=== PATIENT | female | born 1985 | race Two or more races ===

== ENCOUNTER 2023-08-13 07:50 | Emergency (ER) | payer BC, SELFPAY ==
--- NOTE | ~2023-08-13 | XR_ITS ---
EXAMINATION: XR CHEST CLINICAL INFORMATION: Left-sided chest pain. COMPARISON: None available. TECHNIQUE: Frontal view of the chest was obtained. FINDINGS: The lungs are clear. The cardiomediastinal silhouette is normal in size. There is no pleural effusion or pneumothorax. No acute osseous abnormality. XR/XR chest 1V IMPRESSION: No acute cardiopulmonary findings.
[2023-08-13 07:54] VITALS: BP 127/92; PULSE 114; RESP 22; TEMP 36.9; O2SAT 100
--- NOTE | 2023-08-13 07:56 | ED_ITS ---
HPI - General Adult General Chief complaint: Extremity Injury, Upper Stated complaint: L arm pain Time Seen by Provider: 08/13/23 07:56 Source: patient Mode of arrival: ambulatory Limitations: no limitations History of Present Illness HPI narrative: 38-year-old female history of lupus, Raynaud's, ADHD presenting with complaints of left upper extremity pain starting in the axilla radiating down the left upper extremity, feels like a serrated knife at times is cutting her and going down her entire left upper extremity. Also reporting some associated chest discomfort but no shortness of breath. No history of PE or DVT. This has been ongoing for the past few days however not improving seems to be getting worse. Patient was seen by PCP yesterday prescribed prednisone and naproxen. Went to [facility] earlier today and they gave her Tylenol. No fevers, chills, nausea, vomiting, abdominal pain, headache, vision changes, dizziness or weakness. Related Data Previous Rx's Medication Instructions Recorded morphine 15 mg immediate release 15 mg PO Q6H PRN pain 5 days #10 08/13/23 tablet tabs Allergies Allergy/AdvReac Type Severity Reaction Status Date / Time acetaminophen [From Percocet] Allergy Unknown Verified 08/13/23 09:38 bee pollen Allergy Unknown Verified 08/13/23 09:38 oxycodone [From Percocet] Allergy Unknown Verified 08/13/23 09:38 tree nut Allergy Unknown Verified 08/13/23 09:38 Review of Systems 2 Review of Systems: Yes all other systems are reviewed and are negative PMFSH Past Medical History Attestation statement: The following information was validated with the patient. Source: old records reviewed and nursing notes reviewed Social History Social History (System 08/13/23 @ 09:38 by Debra Umana) Smoked in Last 30 Days: No Use of substances other than those prescribed or required for medical reasons: Yes Substance Use Type: Marijuana Advance Directives: Yes Advance Directives Information Provided: Yes Advance Directives on File: No Patient : No Physical Exam ED Vital Signs: Vital Signs - 24 hr 08/13/23 07:54 08/13/23 08:14 08/13/23 10:01 Temperature 98.4 F 98.4 F 98.3 F Pulse Rate 114 H 114 H 94 Respiratory Rate 22 H 22 H 14 Blood Pressure 127/92 H 127/92 H 118/79 Pulse Oximetry 100 100 100 Oxygen Delivery Method Room Air Room Air Room Air 08/13/23 11:20 08/13/23 12:05 Temperature 98.0 F 98.1 F Pulse Rate 82 90 Respiratory Rate 18 18 Blood Pressure 113/71 116/75 Pulse Oximetry 100 95 Oxygen Delivery Method Room Air Room Air BMI result Body Mass Index 27.6 Tachycardia likely secondary to anxiety Appearance: Alert.? Oriented X3.? No acute distress.? Patient pacing around room, anxious. Head: Normocephalic, atraumatic, no step-offs or deformities Eyes: Pupils equal, round and reactive to light.? ENT: Pharynx normal.? Neck: Normal inspection.? Neck supple.? CVS: Normal heart rate and rhythm.? Pulses normal.? Respiratory: No respiratory distress.? Breath sounds normal.? Abdomen: Soft and nontender.? Skin: Skin warm and dry.? Normal skin color.? Normal skin turgor.? Extremities: No lower extremity edema.? No calf ttp. 5/5 strength to bilateral upper and lower extremities. 2+ radial and brachial pulses equal bilateral. No wrist drop. Neuro: Oriented X 3.? No motor deficit.? No sensory deficit. CN 2-12 intact Course Reevaluation(s) Reevaluation #1: CBC with slight leukocytosis 11.8 likely secondary to acute pain. Chemistry no acute findings requiring intervention. Troponin negative. D-dimer negative. EKG nonischemic. Patient much more comfortable states she is feeling much better. Chest x-ray pending. Time: 11:27 Reevaluation #2: X-ray pending however gross read appears normal. Will send her home with rheumatology discharge. Educated patient on diagnosis and treatment plan, answered all question, patient verbalizes understanding. At this time patient will be discharged home, advised to return with new or worsening symptoms. Educated on worrisome signs and symptoms and when to return. At this time I feel comfortable discharge home. I did go over safe narcotic discharge with patient. Time: 11:27 Reevaluation #3: X-ray normal sinus rhythm. Time: 12:19 Medications Administered Discontinued Medications Generic Name Dose Route Start Last Admin Trade Name Freq PRN Reason Stop Dose Admin Fentanyl 25 mcg 08/13/23 08:27 08/13/23 08:31 Fentanyl Citrate/Pf 100 Mcg/2 Ml Vial IVPUSH 08/13/23 08:28 25 mcg ONCE ONE Administration Protocol Ketorolac Tromethamine 30 mg 08/13/23 10:51 08/13/23 11:18 Ketorolac Tromethamine 30 Mg/Ml Vial IVPUSH 08/13/23 10:52 30 mg ONCE ONE Administration Lorazepam 0.5 mg 08/13/23 08:03 08/13/23 08:31 Lorazepam 2 Mg/Ml Vial IVPUSH 08/13/23 08:04 0.5 mg STAT STA Administration Morphine Sulfate 4 mg 08/13/23 08:02 08/13/23 08:32 Morphine Sulfate 4 Mg/Ml Cartridge IVPUSH 08/13/23 08:03 Not Given ONCE ONE Protocol Morphine Sulfate 4 mg 08/13/23 10:55 08/13/23 11:18 Morphine Sulfate 4 Mg/Ml Cartridge IVPUSH 08/13/23 10:56 4 mg ONCE ONE Administration Protocol Medical Decision Making Medical Decision Making [facility] Narrative: 38-year-old female presents with complaints of left upper extremity pain, atraumatic as well as chest pain. Physical examination benign however patient does appear anxious and is pacing around room. Concerns for anxiety and musculoskeletal pain versus complex regional pain syndrome. Unlikely ACS, PE, acute respiratory distress. No trauma unlikely fracture dislocation. Unlikely arterial occlusion. Will do a D-dimer to rule out venous occlusion Plan at this time labs, imaging, EKG Differential Diagnosis Differential Diagnoses: The differential diagnosis associated with the presentation includes Concerns for anxiety and musculoskeletal pain versus complex regional pain syndrome. Unlikely ACS, PE, acute respiratory distress. No trauma unlikely fracture dislocation. Unlikely arterial occlusion. Will do a D-dimer to rule out venous occlusion Admission/Observation Consideration of admission/observation: Escalation of care including admission/observation considered Unlikely Lab Data [facility] Lab Attestation statement: I reviewed the patient's lab results. 08/13/23 08:21 08/13/23 08:21 Labs: Lab Results 08/13/23 Range/Units 08:21 WBC 11.8 H (4.8-10.8) X10*3/uL RBC 4.11 L (4.20-5.50) X10*6/uL Hgb 12.0 (12.0-16.0) g/dl Hct 35.3 L (37.0-47.0) % MCV 85.9 (80.0-98.0) fL MCH 29.2 (27.0-33.0) pg MCHC 34.0 (31.0-35.0) g/dl RDW 13.2 (11.0-16.0) % Plt Count 295 (160-400) X10*3/uL MPV 9.8 (9.4-12.3) fL Immature Gran % (Auto) 0.3 (0.0-0.4) % Neut % (Auto) 90.5 H (45-73) % Lymph % (Auto) 5.6 L (20-40) % [place] % (Auto) 3.5 (2-11) % Eos % (Auto) 0.0 (0-4) % Baso % (Auto) 0.1 (0-2) % Lymph # (Auto) 0.7 L (1.2-4.9) X10*3/uL [place] # (Auto) 0.4 (0.1-1.2) X10*3/uL Eos # (Auto) 0.0 (0.0-0.4) X10*3/uL Baso # (Auto) 0.0 (0.0-0.2) X10*3/uL Abs Immat Gran (auto) 0.04 H (0.00-0.03) X10*3/uL Absolute Neuts (auto) 10.6 H (2.0-8.3) x10*3/uL Absolute Nucleated RBC 0.000 (0.0-0.012) X10*3/uL Nucleated RBC % (auto) 0.0 (0.0-0.2) /100WBC Smear Tech's Comments VERIFIED ESR 7 (0-20) MM/HR PT 12.6 (11.1-13.3) SEC INR 1.0 (0.9-1.1) D-Dimer High Sensitivty < 150 NG/ML Sodium 136 (135-145) mmol/L Potassium 3.7 (3.3-5.1) mmol/L Chloride 106 (96-108) mmol/L Carbon Dioxide 23 (22-29) mmol/L Anion Gap 11 L (12-20) BUN 15 (9-16) mg/dL Creatinine 0.66 (0.5-1.4) mg/dL Estim Creat Clear Calc 107.9 Estimated GFR > 60 Random Glucose 139 H (60-115) mg/dL Calcium 9.0 (8.4-10.2) mg/dL Magnesium 1.8 (1.6-2.6) mg/dL Total Bilirubin 0.4 (0.0-1.0) mg/dL AST 15 (5-31) U/L ALT 20 (0-31) U/L Alkaline Phosphatase 69 (39-117) U/L Troponin I High Sens < 2.7 (<3.5-17.0) ng/L C-Reactive Protein 0.15 (< or = 0.50) mg/dL Total Protein 6.8 (6.5-8.0) g/dL Albumin 3.7 (3.5-5.0) g/dL Independent Interpretation I performed an independent interpretation of an: EKG and Plain X-Ray Radiology Impression Discussion of test interpretation with radiology: I have reviewed the radiologist's reading. Independent Historian Clinical information obtained from an independent historian. History obtained from or confirmed by: Parent Critical Care Time Critical Care Time Critical Care Time: No Discharge Plan Discharge Clinical Impression: Arm pain, left Patient Disposition: Home, Self-Care Instructions: Arm Pain (ED) Additional Instructions: Take your medications as prescribed. If you were prescribed antibiotics today, it is important that you take your medication to their entirety, do not skip any doses, do not finish them early. Follow-up with your primary care provider this week. Return to the emergency department with new or worsening symptoms. Such as fevers, chills, chest pain, shortness of breath, nausea, vomiting, dizziness, headache, vision changes, lethargy In case of emergency call 911 Take prednisone as prescribed. You can take Tylenol as needed for ipus-aw-pigozgct pain. For severe pain you can take morphine. A narcotic has been sent to your pharmacy please take this as prescribed. Do not take more than the prescribed dose. Narcotic medications can cause addiction. Please do not mix them with alcohol. Do not take them while driving or operating machinery. Do not take them with any other narcotics. Do not share them with friends or family. They can cause constipation. Take them only for severe pain. XR/XR chest 1V IMPRESSION: No acute cardiopulmonary findings. Prescriptions: New morphine 15 mg tablet 15 mg PO Q6H PRN (Reason: pain) 5 Days Qty: 10 0RF Rx Instructions: Partial Fill upon patient request. [place] [facility] Group] - 1 day Braulio Win MD [Primary Care Provider] - 2 days Stand Alone Forms: Work/School Release
--- NOTE | 2023-08-13 08:03 | ECG_ITS ---
Test Reason : palpitations Blood Pressure : / mmHG Vent. Rate : 083 BPM Atrial Rate : 083 BPM P-R Int : 154 ms QRS Dur : 084 ms QT Int : 368 ms P-R-T Axes : 075 044 041 degrees QTc Int : 432 ms Normal sinus rhythm Normal ECG No previous ECGs available Referred By: Chichi Suarez Electronically Signed By:DANIEL MALIK
[2023-08-13 08:14] VITALS: BP 127/92; PULSE 114; RESP 22; TEMP 36.9; O2SAT 100; BMI 27.6
[2023-08-13 08:27] LABS: Basophils Percent Auto 0.1 % (0-2); Hematocrit 35.3 % (37.0-47.0); Imm Gran Abs Auto 0.04 X10*3/uL (0.00-0.03); Imm Gran Pct Auto 0.3 % (0.0-0.4); Lymphocytes Absolute Auto 0.7 X10*3/uL (1.2-4.9); Lymphocytes Percent Auto 5.6 % (20-40); MANUAL DIFF FLAG SCAN; Mean Corpuscular Hemoglobin 29.2 pg (27.0-33.0); Mean Corpuscular Volume 85.9 fL (80.0-98.0); Mean Platelet Volume 9.8 fL (9.4-12.3); Monocytes Absolute Auto 0.4 X10*3/uL (0.1-1.2); Monocytes Percent Auto 3.5 % (2-11); Neutrophils Absolute Auto 10.6 x10*3/uL (2.0-8.3); Neutrophils Percent Auto 90.5 % (45-73); Platelet Count 295 X10*3/uL (160-400); Red Blood Count 4.11 X10*6/uL (4.20-5.50); Red Cell Distribution Width 13.2 % (11.0-16.0); SCAN SMEAR FLAG 1; White Blood Count 11.8 X10*3/uL (4.8-10.8)
[2023-08-13] MEDS: LORazepam 2 MG/ML VIAL 0.5 MG IVPUSH (08:31)
[2023-08-13] MEDS: fentaNYL citrate/PF 100 MCG/2 ML VIAL 25 MCG IVPUSH (08:31)
[2023-08-13 08:33] LABS: Prothrombin Time 12.6 SEC (11.1-13.3)
[2023-08-13 08:36] LABS: D Dimer High Sensitivity < 150 NG/ML
--- NOTE | 2023-08-13 08:37 | PC.NURSE ---
a&ox4. vss and up to date. nsr on the monitoring and evaluation advisor. pt c/o LE pain that started around 1.5 weeks ago. pt has a hx of lupus. denies numbness/tingling in extremity - just stating 9/10 pain. pt saw primary care provider at [facility] - prescribed prednisone and diclofenac w/o relief. 20gIV placed in the right AC - labs obtained/sent to lab. medication administered per provider order. no sob/wob noted. respirations even and unlabored. plan of care ongoing. family bedside. call torre placed within reach.
[2023-08-13 08:42] LABS: Alanine Aminotransferase 20 U/L (0-31); Albumin Level 3.7 g/dL (3.5-5.0); Alkaline Phosphatase 69 U/L (39-117); Anion Gap 11 (12-20); Aspartate Amino Transferase 15 U/L (5-31); Bilirubin Total 0.4 mg/dL (0.0-1.0); Blood Urea Nitrogen 15 mg/dL (9-16); C Reactive Protein 0.15 mg/dL (< or = 0.50); Carbon Dioxide 23 mmol/L (22-29); Chloride 106 mmol/L (96-108); Creatinine Clr Calc Pharmacy 107.9; Estimated Glomerular Filt Rate > 60; Glucose Random 139 mg/dL (60-115); Magnesium 1.8 mg/dL (1.6-2.6); Potassium 3.7 mmol/L (3.3-5.1); Sodium 136 mmol/L (135-145); Total Protein 6.8 g/dL (6.5-8.0)
[2023-08-13 08:47] LABS: SLIDE REVIEW VERIFIED
[2023-08-13 08:50] LABS: Troponin-I High Sensitivity < 2.7 ng/L (<3.5-17.0)
[2023-08-13 09:04] LABS: Erythrocyte Sedimentation Rate 7 MM/HR (0-20)
[2023-08-13 10:01] VITALS: BP 118/79; PULSE 94; RESP 14; TEMP 36.8; O2SAT 100
[2023-08-13] MEDS: Morphine Sulfate 4 MG/ML CARTRIDGE IVPUSH (11:18)
[2023-08-13] MEDS: Ketorolac Tromethamine 30 MG/ML VIAL IVPUSH (11:18)
[2023-08-13 11:20] VITALS: BP 113/71; PULSE 82; RESP 18; TEMP 36.7; O2SAT 100
--- NOTE | 2023-08-13 11:21 | PC.NURSE ---
xray bedside/completed. pt still verbalizing 02/15- pain despite medication administration. seen by ED provider. medication administered per provider order. effectiveness pending. vss and up to date. nsr on the service advisor. plan of care ongoing. family bedside. call torre placed within reach.
[2023-08-13 12:05] VITALS: BP 116/75; PULSE 90; RESP 18; TEMP 36.7; O2SAT 95
== END 2023-08-13 12:40 | disposition home or self-care (01) ==
PROVIDERS: Physician Assistant; Emergency Provider Emergency Medicine; PCP Internal Medicine
DX: M79.602 Pain in left arm (principal); R00.2 Palpitations; Z79.899 Other long term (current) drug therapy
CPT/HCPCS: 36415; 71045; 80053; 83735; 84484; 85025; 85379; 85610; 85652; 86140; 93005; 96374; 96375; 99284; 99285; J1885; J2060; J2270; J3010

== ENCOUNTER → 2023-08-13 08:03 | Outpatient (BNV) | payer BC, SELFPAY | PROVIDERS: Emergency Provider Emergency Medicine; PCP Internal Medicine; Visit Provider Internal Medicine | DX: R00.2 Palpitations (principal) | CPT/HCPCS: 93010 ==

== ENCOUNTER 2023-09-04 15:03 | Outpatient (AMB) | payer BC, SELFPAY ==
--- NOTE | 2023-09-04 15:12 | A.OFFVIS_ITS ---
Intake Vital Signs 09/04/23 15:13 Height 5 ft 3 in Weight 151 lb 10.848 oz BMI 26.9 BP 104/68 Blood Pressure Location Rt brachial Position Sitting Respiration 16 Pulse 84 Pulse Source Pulse Oximeter Temp 98.1 F Temp Source Skin Pulse Oximetry (%) 96 Oxygen Delivery Method Room Air Intake Visit Reasons: lupus,joint pain Mortgage Banker Required: No Allergies Milk Containing Products (Dairy) Allergy (Unknown, Verified 09/04/23 15:23) Vomiting acetaminophen [From Percocet] Allergy (Verified 09/04/23 15:23) Unknown bee pollen Allergy (Verified 09/04/23 15:23) Unknown oxycodone [From Percocet] Allergy (Verified 09/04/23 15:23) Unknown tree nut Allergy (Verified 09/04/23 15:23) Unknown Medication List - Last Reconciled 09/04/23 by Reyna Pandey RN morphine 15 mg PO Q6H PRN 5 days multivitamin with minerals 10 mL PO DAILY omega 9-qok-rne-fish oil 1,600-500-800 mg/5 mL (Fish Oil) 5 mL PO DAILY HPI HPI Comments History of Present Illness Details Ms. Wilder 38-year-old female presents to the office to establish care given her history of SLE. She is accompanied by her mom who contributes to the history The patient has had a recent experience of unexplained swelling, numbness and tingling to her left arm; Resolved with high-dose prednisone. This happen to her left arm 3 weeks ago. She cannot identify any associated causes. She was diagnosed with lupus about 10 years ago, thought to be induced by . She has not been consistently on any medications since diagnosis. 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 Patient thinks seizure usually brought on by stress --numbness to thumb and index finger --Evaluated by cardiac with no findings --schedule MRI of the brain upcoming --multiple joint pain --did not take hydroxychloroquine for mo re than 1 month, have not taken prednisone for long-term Patient denies Raynaud's phenomenon, butterfly rash on face or other rashes; denies photosensitivity - getting sick or developing a rash from being out in the sun; denies blood or froth in urine; patient denies hx of SOB, chest pain. Patient denies hx of Carditis or Pleuritis. Patient denies any history of DVT/PE. The patient reports never have had to take aspirin or a blood thinner during the successful pregnancies. Denies fevers, excessive fatigue, unexplained weight-loss or weight-gain, thinning hair or hair loss, hx of rashes; dry mouth, mouth sores or ulcers; ringing in the ear,. Dad sarcoid, sister Sjogren's and Raynaud's, mom and grandma RA [facility] Medical History (Updated 09/11/23 @ 16:48 by CRISTELA SykesUNIV[facility]) Right hand pain Neuropathy, upper extremity Hx of systemic lupus erythematosus (SLE) Near syncope SLE (systemic lupus erythematosus) Fibromyalgia Depression Anxiety ADHD Surgical History History of lumpectomy of right breast History of surgery Hx of breast reduction, elective Social History Substance Use Type: Marijuana Physical Exam Vital Signs: Last Vital Signs Temp 98.1 F 09/04/23 15:13 Pulse 84 09/04/23 15:13 Resp 16 09/04/23 15:13 BP 104/68 09/04/23 15:13 Pulse Ox 96 09/04/23 15:13 Oxygen Delivery Method Room Air 09/04/23 15:13 BMI result Body Mass Index 26.9 Vital signs reviewed. Constitutional: Non-toxic appearing. No acute distress. Well-developed and well-nourished. HEENT: Normocephalic and atraumatic. External auditory canals without erythema or edema bilaterally. More mucous membranes. No pharyngeal erythema or exudates. Skin: Warm and dry. No rashes or lesions noted. Neck: Full and painless range of motion. No cervical lymphadenopathy. Cardio: Regular rate and rhythm. No murmurs, gallops, or rubs. No lower extremity edema. No JVD. Pulmonary: No respiratory distress. No accessory muscle usage. Gastrointestinal: Soft, nontender, and nondistended in all 4 quadrants. Normoactive bowel sounds in all 4 quadrants. Genitourinary: No CVA tenderness. Musculoskeletal: Normal range of motion in joints throughout the body. No deformity or other signs of injury. Tenderness to left arm Neuro: Alert and oriented x4. Cranial nerves 2-12 grossly intact. No focal deficits appreciated. Assessment & Plan Assessment & Plan (1) Neuropathy, upper extremity: Code(s): G56.90 - Unspecified mononeuropathy of unspecified upper limb Qualifiers: Laterality: left Qualified Code(s): G56.92 - Unspecified mononeuropathy of left upper limb (2) Hx of systemic lupus erythematosus (SLE): Code(s): M32.9 - Systemic lupus erythematosus, unspecified Plan Mr. Tina coleman with her mom here for evaluation of symptoms to determine if she has in a lupus crisis. The patient has not taken medications for lupus within the last 2 years. I suspect that she challenged to accept her lupus diagnosis. In reviewing her history, it does suggest that she has inferences of autoimmunity with connective tissue disease and also consider her strong family history. I will obtain additional lab work to assess her baseline and antibo dies. What she had experienced could possible be lupus vasculitis but it is difficult to assess at this point. If lupus/CTD is indicated from the lab, I will consider starting hydroxychloroquine. On PE there was no swelling to her left arm, she identify numbness to her 4th and 5th finger. It is possible that she is experienced in the after effects of neuropathy. We can consider to do an EMG study if that persists. I discussed with patient that improvement is evident because sensation has returned to most of her fingers and that it may take some time to regain sensation in the remaining fingers. I have requested diagnostics during hospitalization. I spent 60 minutes reviewing history, evaluating patient, discussing lupus and disease process and possible treatment options, document Orders: Orders C Reactive Protein 09/04/23 G56.90 - Unspecified mononeuropathy of unspecified upper limb, M32.9 - Systemic lupus erythematosus, unspecified Erythrocyte Sedimentation Rate 09/04/23 G56.90 - Unspecified mononeuropathy of unspecified upper limb, M32.9 - Systemic lupus erythematosus, unspecified SHANTAL Reflex Titer and Pattern 09/04/23 G56.90 - Unspecified mononeuropathy of unspecified upper limb, M32.9 - Systemic lupus erythematosus, unspecified Anti-Centromere B Antibodies 09/04/23 G56.90 - Unspecified mononeuropathy of unspecified upper limb, M32.9 - Systemic lupus erythematosus, unspecified Complement C4 09/04/23 G56.90 - Unspecified mononeuropathy of unspecified upper limb, M32.9 - Systemic lupus erythematosus, unspecified T Spot TB 09/04/23 G56.90 - Unspecified mononeuropathy of unspecified upper limb, M32.9 - Systemic lupus erythematosus, unspecified UA w Microscopic 09/04/23 G56.90 - Unspecified mononeuropathy of unspecified upper limb, M32.9 - Systemic lupus erythematosus, unspecified Protein Creatinine Ratio, Ur 09/04/23 G56.90 - Unspecified mononeuropathy of unspecified upper limb, M32.9 - Systemic lupus erythematosus, unspecified Complete Blood Count Auto Diff 09/04/23 G56.90 - Unspecified mononeuropathy of unspecified upper limb, M32.9 - Systemic lupus erythematosus, unspecified Comprehensive Met. Panel 09/04/23 G56.90 - Unspecified mononeuropathy of unspecified upper limb, M32.9 - Systemic lupus erythematosus, unspecified ANCA Vasculitides 09/04/23 G56.90 - Unspecified mononeuropathy of unspecified upper limb, M32.9 - Systemic lupus erythematosus, unspecified Anti DNA DS Antibody 09/04/23 G56.90 - Unspecified mononeuropathy of unspecified upper limb, M32.9 - Systemic lupus erythematosus, unspecified Anti Extractable Nuclear Ag 09/04/23 G56.90 - Unspecified mononeuropathy of unspecified upper limb, M32.9 - Systemic lupus erythematosus, unspecified Creatine Kinase Total 09/04/23 G56.90 - Unspecified mononeuropathy of unspecified upper limb, M32.9 - Systemic lupus erythematosus, unspecified Protein Electrophoresis, Serum 09/04/23 G56.90 - Unspecified mononeuropathy of unspecified upper limb, M32.9 - Systemic lupus erythematosus, unspecified Immunofixation Pnl, Serum 09/04/23 G56.90 - Unspecified mononeuropathy of unspecified upper limb, M32.9 - Systemic lupus erythematosus, unspecified Immunoglobulins,IgG IgA IgM 09/04/23 G56.90 - Unspecified mononeuropathy of unspecified upper limb, M32.9 - Systemic lupus erythematosus, unspecified Sjogren's Antibodies 09/04/23 G56.90 - Unspecified mononeuropathy of unspecified upper limb, M32.9 - Systemic lupus erythematosus, unspecified Angiotensin Converting Enzyme 09/04/23 G56.90 - Unspecified mononeuropathy of unspecified upper limb, M32.9 - Systemic lupus erythematosus, unspecified Complement C3 09/04/23 G56.90 - Unspecified mononeuropathy of unspecified upper limb, M32.9 - Systemic lupus erythematosus, unspecified Hepatitis A,B,C Profile 09/04/23 G56.90 - Unspecified mononeuropathy of unspecified upper limb, M32.9 - Systemic lupus erythematosus, unspecified Lupus Anticoagulant Panel 09/04/23 G56.90 - Unspecified mononeuropathy of unspecified upper limb, M32.9 - Systemic lupus erythematosus, unspecified Medications: New tramadol 50 mg PO BID PRN 60 tabs 1RF pain G56.90 - Unspecified mononeuropathy of unspecified upper limb, M32.9 - Systemic lupus erythematosus, unspecified, M79.641 - Pain in right hand Coding Level of Care Code New Pt Level 5 (12859) Diagnoses Neuropathy of left upper extremity G56.92 Laterality: left Hx of systemic lupus erythematosus (SLE) M32.9
[2023-09-04 15:13] VITALS: BP 104/68; PULSE 84; RESP 16; TEMP 36.7; O2SAT 96; BMI 26.9
== END 2023-09-04 16:38 | disposition home or self-care (01) ==
PROVIDERS: PCP Internal Medicine; Visit Provider Nurse Practitioner Family
DX: M32.9 Systemic lupus erythematosus, unspecified (principal); G56.92 Unspecified mononeuropathy of left upper limb
CPT/HCPCS: 99205

== ENCOUNTER 2023-09-04 15:03 | Outpatient (REF) | payer BC, SELFPAY ==
[2023-09-04 17:12] LABS: MANUAL DIFF FLAG NO
[2023-09-04 17:43] LABS: Basophils Percent Auto 0.5 % (0-2); Eosinophils Absolute Auto 0.1 X10*3/uL (0.0-0.4); Eosinophils Percent Auto 1.4 % (0-4); Hematocrit 36.8 % (37.0-47.0); Hemoglobin 12.2 g/dl (12.0-16.0); Imm Gran Abs Auto 0.02 X10*3/uL (0.00-0.03); Imm Gran Pct Auto 0.3 % (0.0-0.4); Lymphocytes Absolute Auto 2.7 X10*3/uL (1.2-4.9); Lymphocytes Percent Auto 36.6 % (20-40); Mean Corpuscular HGB Conc 33.2 g/dl (31.0-35.0); Mean Corpuscular Hemoglobin 29.8 pg (27.0-33.0); Mean Corpuscular Volume 89.8 fL (80.0-98.0); Mean Platelet Volume 10.2 fL (9.4-12.3); Monocytes Absolute Auto 0.6 X10*3/uL (0.1-1.2); Monocytes Percent Auto 7.5 % (2-11); Neutrophils Percent Auto 53.7 % (45-73); Platelet Count 343 X10*3/uL (160-400); Red Cell Distribution Width 14.2 % (11.0-16.0); White Blood Count 7.4 X10*3/uL (4.8-10.8)
[2023-09-04 18:05] LABS: Alanine Aminotransferase 19 U/L (0-31); Albumin Level 4.1 g/dL (3.5-5.0); Alkaline Phosphatase 84 U/L (39-117); Anion Gap 8 (12-20); Aspartate Amino Transferase 17 U/L (5-31); Bilirubin Total 0.1 mg/dL (0.0-1.0); Blood Urea Nitrogen 9 mg/dL (9-16); C Reactive Protein 0.19 mg/dL (< or = 0.50); Calcium 9.5 mg/dL (8.4-10.2); Carbon Dioxide 27 mmol/L (22-29); Chloride 106 mmol/L (96-108); Estimated Glomerular Filt Rate > 60; Glucose Random 87 mg/dL (60-115); Potassium 4.3 mmol/L (3.3-5.1); Sodium 137 mmol/L (135-145); Total Protein 7.3 g/dL (6.5-8.0)
[2023-09-04 18:08] LABS: Appearance Urine Clear; Color Urine Yellow; Glucose Urine UA Negative (Negative); Leukocyte Esterase Urine Negative (Negative); Nitrite Urine Negative (Negative); Specific Gravity - Urine 1.015 (1.005-1.025); Urine Blood Negative (Negative); Urine Ketones Negative (Negative); Urine Protein Negative (Neg-Trace)
[2023-09-04 18:13] LABS: Bacteria Urine None Seen (None Seen); Hyaline Casts Urine 0-2 /LPF (0-2); RBC Urine 0-2 /HPF (0-2); Squamous Epithelial Cell Urine 0-2 /HPF (0-2); WBC Urine 0-5 /HPF (0-5)
[2023-09-04 18:19] LABS: Erythrocyte Sedimentation Rate 8 MM/HR (0-20)
[2023-09-04 20:11] LABS: Creatinine Urine 57.09 mg/dL; Total Protein Urine Random < 7 mg/dL (<12)
[2023-09-05 08:23] LABS: HBsAGNum1 0.35 S/CO (0.00-0.99); Hepatitis A Antibody IgM 0.18 Index (0-0.79); Hepatitis B Core Antibody Nonreactive (Nonreactive); Hepatitis B Surface Antigen Negative (Negative); ~HepC Num1 0.16 S/CO (0.00-0.79); ~Hepatitis A Antibody IgM Nonreactive (Nonreactive); ~Hepatitis B Surface Antibody REACTIVE (Nonreactive); ~Hepatitis C Antibody Nonreactive (Nonreactive)
[2023-09-06 16:19] LABS: Complement C3 125 mg/dL (83-193)
[2023-09-06 20:33] LABS: Anti-Centromere B Antibodies <1.0 NEG AI (<1.0 NEG)
[2023-09-06 20:48] LABS: Anti DNA DS Antibody 1 IU/mL; Antibody to SS-A Antigen <1.0 NEG AI (<1.0 NEG); Antibody to SS-B Antigen <1.0 NEG AI (<1.0 NEG); Myeloperoxidase Antibody <1.0 AI; Proteinase 3 PR3 Antibodies <1.0 AI; SM/Ribonucleoprotein Ab <1.0 NEG AI (<1.0 NEG); Smith Protein <1.0 NEG AI (<1.0 NEG)
[2023-09-06 21:03] LABS: Prot Elec - Albumin 4.2 g/dL (3.8-4.8); Prot Elec - Alpha1 0.3 g/dL (0.2-0.3); Prot Elec - Alpha2 0.7 g/dL (0.5-0.9); Prot Elec - Beta 1 0.5 g/dL (0.4-0.6); Prot Elec - Beta 2 0.4 g/dL (0.2-0.5); Prot Elec - Gamma 1.1 g/dL (0.8-1.7); Prot Elec - Total Protein 7.2 g/dL (6.1-8.1)
[2023-09-07 07:49] LABS: TS Negative Control Passed; TS Panel A 0; TS Panel B 0; TS Positive Control Passed; TSpotTB Negative (Negative)
[2023-09-08 22:54] LABS: PTT (LAC) Screen 29 sec (<=40)
[2023-09-10 15:13] LABS: Anti Nuclear Antibody Screen POSITIVE (NEGATIVE)
[2023-09-10 16:04] LABS: IgA 159 mg/dL (47-310); IgG 1267 mg/dL (600-1640); IgM 73 mg/dL (50-300)
== END 2023-09-04 15:04 | disposition home or self-care (01) ==
LOC: HO.LAB 15:03
PROVIDERS: PCP Internal Medicine; Visit Provider Nurse Practitioner Family
DX: G56.92 Unspecified mononeuropathy of left upper limb (principal); M32.9 Systemic lupus erythematosus, unspecified
CPT/HCPCS: 36415; 80053; 81001; 82164; 82550; 82570; 82784; 84156; 84165; 85025; 85597; 85598; 85613; 85652; 85730; 86021; 86038; 86039; 86140; 86160; 86225; 86235; 86334; 86481; 86704; 86706; 86709; 86803; 87340

== ENCOUNTER 2024-06-23 13:59 | Outpatient (REF) | payer BC, SELFPAY ==
[2024-06-23 18:00] LABS: MANUAL DIFF FLAG NO
[2024-06-23 18:08] LABS: Basophils Percent Auto 0.6 % (0-2); Eosinophils Percent Auto 0.4 % (0-4); Hematocrit 39.1 % (37.0-47.0); Hemoglobin 12.9 g/dl (12.0-16.0); Imm Gran Abs Auto 0.02 X10*3/uL (0.00-0.03); Imm Gran Pct Auto 0.3 % (0.0-0.4); Lymphocytes Absolute Auto 1.9 X10*3/uL (1.2-4.9); Lymphocytes Percent Auto 26.9 % (20-40); Mean Corpuscular Hemoglobin 28.5 pg (27.0-33.0); Mean Corpuscular Volume 86.3 fL (80.0-98.0); Mean Platelet Volume 10.6 fL (9.4-12.3); Monocytes Absolute Auto 0.6 X10*3/uL (0.1-1.2); Monocytes Percent Auto 8.4 % (2-11); Neutrophils Absolute Auto 4.4 x10*3/uL (2.0-8.3); Neutrophils Percent Auto 63.4 % (45-73); Platelet Count 288 X10*3/uL (160-400); Red Blood Count 4.53 X10*6/uL (4.20-5.50); Red Cell Distribution Width 14.8 % (11.0-16.0); White Blood Count 6.9 X10*3/uL (4.8-10.8)
[2024-06-23 18:18] LABS: Appearance Urine Turbid; Color Urine Yellow; Glucose Urine UA Negative (Negative); Leukocyte Esterase Urine Trace (Negative); Nitrite Urine Negative (Negative); PH 5.5 (5.0-9.0); Specific Gravity - Urine >= 1.030 (1.005-1.025); UMIC TRIGGER UACC YES; Urine Blood Negative (Negative); Urine Ketones 40 mg/dL (Negative); Urine Protein Negative (Neg-Trace)
[2024-06-23 18:21] LABS: Bacteria Urine 2+ (None Seen); Hyaline Casts Urine 0-2 /LPF (0-2); RBC Urine 0-2 /HPF (0-2); WBC Urine 0-5 /HPF (0-5)
[2024-06-23 18:38] LABS: Alanine Aminotransferase 17 U/L (0-31); Aspartate Amino Transferase 26 U/L (5-31); C Reactive Protein 0.36 mg/dL (< or = 0.50); Estimated Glomerular Filt Rate > 60
[2024-06-23 18:44] LABS: Protein/Creatinine Ratio, Ur 0.04 (<0.2); Total Protein Urine Random 11 mg/dL (<12)
[2024-06-23 18:45] LABS: TSH reflex Free T4 1.24 uIU/mL (0.32-4.0)
--- OUTSIDE RECORDS SUMMARY | 2024-06-23 19:13 | XMS_ITS | Continuity of Care Document ---
Author Organization [facility] Address [address] [place] [address]- Care Team Providers Care Supervisor Industrial [employer]ment Name Role Phone Braulio Win MD Primary Care Physician [phone] [id number] Date(s): 05/20/24 - 05/27/24 [facility] [address] [place], [place] [address] Attending Physician: Braulio Win MD Encounter Type: Office Visit Allergies, Adverse Reactions, Alerts Substance Criticality Severity Reaction Reaction Severity Status Percocet 5/325 hives and inc reased heart rate Active Bee Stings anaphylaxis Active Milk Products vomitting Active Nuts increased heart rate and throat closes Active Immunizations Given and Recorded Vaccine Date Status Refusal Reason tetanus/diphtheria/pertussis, acel(Tdap) 06/27/21 Given influenza virus vaccine, inactivated 02/03/21 Silver rded influenza virus vaccine, inactivated 03/23/20 Silver rded SARS-CoV-2 (COVID-19) mRNA BNT-162b2 vac 02/03/21 Recorded SARS-CoV-2 (COVID-19) mRNA BNT-162b2 vac 08/03/20 Recorded SARS-CoV-2 (COVID-19) mRNA BNT-162b2 vac 07/13/20 Recorded pneumococcal 13-valent vaccine 12/04/16 Recorded Medications Adderall XR 30 mg oral capsule, extended release 1 capsule = 30 mg, By Mouth, Daily in AM, 0 Refills, Maintenance, 05/20/24 3:45:00 PM EST, ER Capsule, Partial fill upon patient request if the prescription is for a schedule II opioid drug. Start Date: 05/20/24 Status: Ordered Repeat number: 1 albuterol 90 mcg/inh inhalation powder 2 puffs, Inhalation, Every 6 hours, PRN Wheezing/Shortness of Breath, # 1 each, 11 Refills, Maintenance, 02/10/24 9:24:00 AM EDT, [id number], Partial fill upon patient request if the prescription is for a schedule II opioid drug., 2 puffs Inhalation Every 6 hours,PRN:Wheezing/Shortness of Breath, 160, cm, 02/10/24 9:08:00 EDT, Height, 69.5, kg, 11/15/23 14:53:00 EDT, Dry Weight Start Date: 02/10/24 Status: Ordered Quantity: 1.0 Unit: each Repeat number: 12 Collagen powder form daily, 0 Refills, Maintenance, 12/20/22 11:51:00 AM EDT, Partial fill upon patient request if the prescription is for a schedule II opioid drug. Start Date: 12/20/22 Status: Ordered Repeat number: 1 EpiPen 2-David 0.3 mg injectable kit = 0.3 mg, Intramuscular, Once, # 1 kit, 1 Refills, Soft Stop, 12/11/23 10:39:00 AM EDT, [facility] #[id number], Partial fill upon patient request if the prescription is for a schedule II opioid drug., 160, cm, 11/26/23 11:06:00 EDT, Height, 69.5, kg, 11/15/23 14:53:00 EDT, Dry Weight Start Date: 12/11/23 Status: Ordered Quantity: 1.0 Unit: kit Repeat number: 2 Fish Oil 1 tsp liquid, By Mouth, Daily in AM, 0 Refills, Maintenance, 07/04/22 9:32:00 AM EST, Partial fill upon patient request if the prescription is for a schedule II opioid drug. Start Date: 07/04/22 Status: Ordered Repeat number: 1 Iron Iron, 0 Refills, Maintenance, 01/04/23 10:36:00 AM EDT Start Date: 01/04/23 Status: Ordered Repeat number: 1 Misc Rx Refills 0, Maintenance, Vitamin B12 sublingual spray daily, 12/20/22 11:50:00 AM EDT, Supply Start Date: 12/20/22 Status: Ordered Repeat number: 1 Misc Rx Refills 0, Maintenance, Vitamin D3 with K sublingual spray daily, 12/20/22 11:51:00 AM EDT, Supply Start Date: 12/20/22 Status: Ordered Repeat number: 1 Misc Rx Refills 0, Maintenance, Vegan protein powder daily, 12/20/22 11:52:00 AM EDT, Supply Start Date: 12/20/22 Status: Ordered Repeat number: 1 Miscellaneous Rx probiotic liquid, By Mouth, Daily in AM, 0 Refills, Maintenance, 07/04/22 9:32:00 AM EST Start Date: 07/04/22 Status: Ordered Repeat number: 1 multivitamin Multiple Vitamins oral liquid multivitamin liquid, By Mouth, Daily in AM, 0 Refills, Maintenance, 07/04/22 9:30:00 AM EST, Partialfill upon patient request if the prescription is for a schedule II opioid drug. Start Date: 07/04/22 Status: Ordered Repeat number: 1 naproxen 500 mg oral delayed release tablet 1 tablet, By Mouth, 2 times a day, PRN NEEDED, MODERATE PAIN., # 60 tablet, 3 Refills, Maintenance, 03/07/23 6:54:00 AM EDT, [id number], 162, cm, 01/04/23 10:36:00 EDT, Height, 72.2, kg, 01/15/23 12:02:00 EDT, Dry Weight Start Date: 03/07/23 Status: Ordered Quantity: 60.0 Unit: tablet Repeat number: 1 triamcinolone 0.1% topical cream 1 application, Topically, 3 times a day, PRN hand rash, # 30 Gm, 3 Refills, Acute 07/24/24 3:58:00 PMEST, 07/24/23 3:58:00 PM EST, Cream, [facility]/pharmacy #[id number], Partial fill upon patient request if the prescription is for a schedule II opioid drug., 1 application Topically 3 times a day,PRN:hand rash, 162, cm, 07/24/23 15:24:00 EST, Height, 65.9, kg, 07/24/23 15:24:00 EST, Dry Weight Start Date: 07/24/23 Stop Date: 07/24/24 Status: Ordered Quantity: 30.0 Unit: g Repeat number: 4 Tylenol 325 mg oral capsule See Instructions, PRN as needed for pain, 2 capsule (650 mg) taken By Mouth Every 4 hours not to exceed 4000 mg/day, # 60 capsule, 0 Refills, Maintenance, 12/24/22 9:07:00 AM EDT, Capsule, [facility]/pharmacy #[id number], Partial fill upon patient request if the prescription is for a schedule II opioid drug., 162, cm, 12/24/22 7:01:00 EDT, Height, 74.6, kg, 12/24/22 7:01:00 EDT, Dry Weight Start Date: 12/24/22 Status: Ordered Quantity: 60.0 Unit: capsule Repeat number: 1 Ultram 50 mg oral tablet 1 tablet = 50 mg, By Mouth, Every 4 hours, PRN for pain, # 20 tablet, 0 Refills, Maintenance, 05/20/24 3:48:00 PM EST, Tablet, [id number], Partial fill upon patient request if the prescription is for a schedule II opioid drug., 160, cm, 05/20/24 15:28:00 EST, Height, 77.3, kg, 05/20/24 15:28:00 EST, Dry Weight Start Date: 05/20/24 Status: Ordered Quantity: 20.0 Unit: tablet Repeat number: 1 Zinc = 140 mg, By Mouth, Daily in AM, 0 Refills, Maintenance, 07/04/22 9:31:00 AM EST, Partial fill upon patient request if the prescription is for a schedule II opioid drug. Start Date: 07/04/22 Status: Ordered Repeat number: 1 Problem List Condition Confirmation Course Effective Dates Status H ealth Status Informant ADHD (attention deficit hyperactivity disorder) Confirmed Active Anxiety Confirmed Active Depression Confirmed Active Primary dysmenorrhea Confirmed Active Family history of breast cancer Confirmed Active Fibromyalgia Confirmed Active Heterogeneously dense tissue of both breasts on mammography Confirmed Active History of systemic lupus erythematosus (SLE) Confirmed Active Near syncope Confirmed Active Obese class I Confirmed Active Recurrent upper respiratory infection (URI) Confirmed Active Vital Signs Most recent to oldest [Reference Range]: 1 Height 160 cm (05/20/24 3:28 PM) Weight 77.3 kg (05/20/24 3:28 PM) Oxygen Saturation [94-100 %] 100 % (05/20/24 3:28 PM) Pulse Rate [55-90 bpm] 92 bpm *H* (05/20/24 3:28 PM) Body Mass Index [18.5-24.99 kg/m2] 30.2 kg/m2 *>HHI* (05/20/24 3:28 PM) Blood Pressure [90-138/55-84 mm Hg] 122/ 64mm Hg (05/20/24 3:28 PM) Mode of Delivery (Oxygen) Room air (05/20/24 3:28 PM) Blood pressure sites Arm, right (05/20/24 3:28 PM) Dry Weight 77.3 kg (05/20/24 3:28 PM) Weight Obtained Via Standing scale (05/20/24 3:28 PM) Dry Weight Obtained Via Standing scale (05/20/24 3:28 PM) Social History Social History Type Response Smoking Status Never (less than 100 in lifetime) entered on: 05/21/22 Sex Sex Representation Female (finding) Patient Care team information Care Team Personnel Name: Braulio Win MD Position: S Physician - Primary Care Member Role: PCP Address: [address] [place] [address] [facility] [address] Telecom: Care Team Related Persons Name: DAVID HAWK Name: VARSHA LEWIS Name: VARSHA LEWIS Name: VARSHA LEWIS Insurance Providers Guarantor name: KAMAR LEWIS Health Plan Information #: 1 Payer: [employer] P[employer] Member Number: [id number] Policy Number: NA Group Number: NA Health Plan Information #: 2 Payer: [facility] [employer] PPO Member Number: [id number] Policy Number: NA Group Number: NA
--- OUTSIDE RECORDS SUMMARY | 2024-06-23 19:13 | XMS_ITS | Data Portability ---
Author Organization [facility] [address] [place] [address] Care Team Providers Care Creeler Name Role Phone SHANTAL HARRIS Primary Care Provider Assessment No assessment recorded. Plan of Treatment Reminders Order Date Submit Date Provider Last Modified By Organization Details Last Modified Time Details Appointments None recorded. Lab None recorded. Referral None recorded. Procedures None recorded. Surgeries None recorded. Imaging None recorded. Medication Orders prednisone 20 mg tablet 2021 [facility] #[id number], [address] [place], [address], 16:54:10 azithromyci n 200 mg/5 mL oral suspension 2021 [facility] #[id number], [address] [place], [address], 16:54:10 albuterol sulfate HFA 90 mcg/actuati on aerosol inhaler [id number] [address] [place], [address], 16:56:07 Patient TargetsNo targets recorded. Patient Instructions Encounter Date Encounter Id Patient Instructions Last Modified By Organization Details Last Modified Time 06/16/2022 [id number] cough: care instructions [email or web address] Not available 06/16/2022 16:54:08 asthma in adults : care instructions [email or web address] Not available 06/16/2022 16:54:54 bronchitis: care instructions [email or web address] Not available 06/16/2022 16:54:54 Take the medication and use the inhaler as prescribed. See printed instructions. Drink plenty of fluids. Seek Emergency Medical evaluation for any worsening symptoms. Follow-up with your doctor this week. [email or web address] Not available 06/16/2022 16:56:58 Reason for Referral None Reported. Problems Name Problem SNOMED Code Status Onset Date Resolution Date Notes Provider Name and Address Organization Details Recorded Time Lupus erythematosus 785466712 Active 2021 YANIV DRINKWINE null, [place] - [facility] 2 16:30:11 Attention deficit hyperactivity disorder 986888212 Active 2021 YANIV DRINKWINE null, PA - [facility] 2 16:30:25 Problem Notes None recorded. Procedures Surgical History Date Name Laterality Status Provider Name and Address Organization Details Recorded Time lumpectomy of breast completed YANIV DRINKWINE PA - [facility] 06/16/2022 16:30:42 manipulation of displaced nasal septum completed YANIV DRINKWINE PA - [facility] 06/16/2022 16:30:52 colonoscopy completed YANIV DRINKWINE PA - [facility] 06/16/2022 16:31:18 Imaging Results None recorded. Procedure Notes None recorded. Medical Equipment None Reported. Allergies Allergen ID Allergen Name Allergen Category Reaction Reaction Severity Criticality Documentation Date Start Date Code Code System Note Provider Name and Address Organization Details Recorded Time 27924 acetamino phen / oxycodone medicatio n hives palpitati ons Not available Not available Not available 06/16/2022 72955 3 RxNorm YANIV DRINKWINE null, PA - [facility] 2 16:28:04 56451 bee pollen environme nt,medica tion Not available Not available Not available 06/16/2022 74636 7 RxNorm YANIV DRINKWINE null, PA - [facility] 2 16:28:17 14232 nut - unspecifi ed food Not available Not available Not available 06/16/2022 YANIV DRINKWINE null, PA - [facility] 2 16:28:24 97246 cow milk allergeni c extract food,medi cation Not available Not available Not available 06/16/2022 38913 5 RxNorm YANIV jones PA - [facility] 2 16:28:29 Medications Name Sig Start Date Stop Date Status Note LastModified by Organization Details LastModified Time prednisone 20 mg tablet Take 2 tablets every day by oral route for 5 days. 2021 active Not Available Not Available Not Avai lable azithromycin 200 mg/5 mL oral suspension Take 12.5 mL every day by oral route for 1 day. 2021 active Not Available Not Available Not Avai lable albuterol sulfate HFA 90 mcg/actuatio n aerosol inhaler Inhale 2 puffs every 4 hours by inhalation route as needed. 2021 active Not Available Not Available Not Avai lable Fish Oil active Not Available Not Avai lable Not Available Vitamin D3 active Not Available Not Av ailable Not Available silica active Not Available Not Availa ble Not Available multivitamin active Not Available Not Available Not Available Multimineral Plus active Not Available Not Available Not Available collagen (bovine) active Not Available Not Available Not Available Vitamin B12 active Not Available Not A vailable Not Available Vitals Date Recorded Body weight Body mass index (BMI) Body height Body temperature Respiratory rate Heart rate Oxygen saturation Oxygen saturation in Arterial blood by Pulse oximetry Systolic blood pressure Diastolic blood pressure Provider Name and Address Organization Details Last Updated DateTime 2 94844.5 5 g 33.7 kg/m2 160.02 cm 97.2 [degF] 18 /min 88 /min 99 % 99 % 122 mm[Hg] 80 mm[Hg] YANIV AMADOR PA - [facility] 2 16:37:13 Social History Question Answer Notes LastModified by Organizat ion Details LastModified Time Tobacco Smoking Status Never Smoker YANIV jones PA - [facility] 06/16/2022 16:34:27 What Is Your Level Of Alcohol Consumption? Occasional Information not available 06/16/2022 Do You Use Any Illicit Or Recreational Drugs? No Information not available 06/16/2022 Have You Recently Traveled Abroad? No Information not available 06/16/2022 Do You Or Have You Ever Used Any Other Forms Of Tobacco Or Nicotine? No Information not available 06/16/2022 Sex: Unknown Functional Status None recorded. Mental Status None recorded. Family History Relationship Description Onset Age of this Age Resolved Age Notes LastModified by Organization Details LastModified Time Maternal Aunt Heart disease [email or web address] Not available 06/16 16:31:51 Maternal Aunt Autoimmune disease [email or web address] Not available 06/16 16:32:11 Maternal Aunt Malignant tumor of breast [email or web address] Not available 06/16 16:34:04 Maternal Grandfather Heart disease [email or web address] Not available 06/16 16:31:51 Maternal Uncle Heart disease ldrinkwine Not available 06/16 16:31:51 Mother Autoimmune disease [email or web address] Not available 06/16 16:32:11 Father Sarcoidosis [email or web address] Not avai lable 06/16/2022 16:32:21 Father Diabetes mellitus [email or web address] Not available 06/16 16:32:32 Paternal Grandmother Malignant tumor of breast ldrinkwine Not available 06/16 16:33:19 Paternal Uncle Malignant tumor of breast ldrinkwine Not available 06/16 16:33:19 Paternal Uncle Malignant tumor of colon ldrinkwine Not available 06/16 16:33:43 Medical History No medical history recorded. Gynecological HistoryNo gynecological history recorded. Obstetrics History GPAL:G 0 P 0 0 0 0 Immunizations Vaccine Type Date Status Note Provider Nam e and Address Organization Details Recorded Time COVID-19, mRNA, LNP-S, PF, 30 mcg/0.3 mL dose 1 completed YANIV DRINKWINE null, PA - [facility] 06/16/2022 16:34:36 COVID-19, mRNA, LNP-S, PF, 30 mcg/0.3 mL dose 1 completed YANIV DRINKWINE null, PA - [facility] 06/16/2022 16:34:36 Tdap 2 completed YANIV DRINKWINE null, PA - [facility] 06/16/2022 16:34:36 Influenza, MDCK, quadrivalent, PF 0 completed YANIV DRINKWINE null, PA - [facility] 06/16/2022 16:34:36 Pneumococcal conjugate PCV 13 7 completed YANIV DRINKWINE null, PA - [facility] 06/16/2022 16:34:36 COVID-19, mRNA, LNP-S, PF, 30 mcg/0.3 mL dose 1 completed YANIV DRINKWINE null, PA - [facility] 06/16/2022 16:34:36 Influenza, split virus, trivalent, preservative 1 completed YANIV DRINKWINE null, PA - [facility] 06/16/2022 16:34:36 Past Encounters Encounter ID Performer Location Encounter Start Date Encounter Closed Date Diagnosis/Indication Diagnosis SNOMED-CT Code Diagnosis ICD10 Code Diagnosis Note [id number] [address] [place] [address] 10/18/2019 18:59:31 10/18/2019 19:32:46 [id number] [address] [place] [address] 04/15/2021 09:48:42 04/15/2021 11:21:20 [id number] [address] [place] [address] 04/12/2021 08:11:39 04/12/2021 09:01:58 [id number] [facility] [address] [place] [address] 06/16/2022 14:59:07 06/16/2022 17:01:28 Asthmatic bronchitis 293006213 J45.909 Health Concerns Section Related Observation LastModified by Organization Detai ls LastModified Time None Recorded Concern Status LastModified by Organization Details LastModified Time None Recorded Advance Directives Directive None Recorded Payers Encounter Date Sequence Insurance Name Policy Number Policy Adams Covered Member ID Adams Member ID Guarantor Name 10/18/2019 1 [place] [id number] Nixon Wilkerson [id number] Tina Wilkerson 04/12/2021 1 [place] [id number] S Jett Wilkerson [id number] Tina Wilkerson 04/15/2021 1 [place] [id number] S Jett Wilkerson [id number] Tina Casanovaia 06/16/2022 1 [place] [id number] S Jett Wilkerson [id number] Tina Wilkerson Notes Date Note Type Note Provider Name and Address Organization Details Recorded Time 2 text/html CoughReported bypatient.source of patient informationInformation obtained from patient; Patient arrived at Urgent Care ambulatory Quality:productive cough Severity:moderate Duration:constant Timing:constant Context:non-smoker;history of asthma Associated Symptoms:no fever; no chills; no chest pain; no nausea; no vomiting; no edema; no agitation; no post nasal drip;wheezingNotes:37 year old female with hx of asthma and SLE (no medication a present) presenting for evaluation of a productive cough, intermittent wheezing and shortness of breath, nasal congestion, chest congestion for the past 6 days. She had a transient sore throat and fever that resolved. No chills. Some ear pressure. No headache, rash, stiff neck, chest pain, nausea, vomiting, diarrhea, body aches. Katharine Jurado MD [address] [facility] [place], [address], [place] - [facility] 06/16/2022 17:18:30 OBGyn Episode No OBEpisode recorded.
--- OUTSIDE RECORDS SUMMARY | 2024-06-23 19:13 | XMS_ITS | Continuity of Care Document ---
Author Organization [facility] Address [address] [place] [address]- Care Team Providers Care Art Teacher Name Role Phone Quirino POSADAS, Braulio Odonnell Primary Care Physician Encounter [facility] Date(s): 05/20/24 - 06/19/24 [facility] [address] [place], [place] [address] Attending Physician: Corazon Young Admitting Physician: Corazon Young Referring Physician: Admtr, Ar8 Encounter Type: Triage Allergies, Adverse Reactions, Alerts Substance Criticality Severity Reaction Reaction Severity Status Bee Stings anaphylaxis Active Milk Products vomitting Active Nuts increased heart rate and throat closes Active Percocet 5/325 hives and inc reased heart rate Active Immunizations Given and Recorded Vaccine Date [...] 11 Refills, Maintenance, 02/10/24 9:24:00 AM EDT, [facility] #[id number], Partial fill upon patient request if the [...] Refills, Soft Stop, 12/11/23 10:39:00 AM EDT, [facility] #[id number], Partial fill upon patient request if the [...] 3 Refills, Maintenance, 03/07/23 6:54:00 AM EDT, [id number], 162, cm, 01/04/23 10:36:00 EDT, Height, 72.2, kg, 01/15/23 12:02:00 EDT, Dry Weight Start Date: 03/07/23 Status: Ordered Quantity: 60.0 Unit: tablet Repeat number: 1 triamcinolone 0.1% topical cream 1 application, Topically, 3 times a day, PRN hand rash, # 30 Gm, 3 Refills, Acute 07/24/24 3:58:00 PMEST, 07/24/23 3:58:00 PM EST, Cream, [id number], Partial fill upon patient request if [...] Refills, Maintenance, 12/24/22 9:07:00 AM EDT, Capsule, [id number], Partial fill upon patient request if [...] Refills, Maintenance, 05/20/24 3:48:00 PM EST, Tablet, [facility][id number], Partial fill upon patient request if the [...] Recurrent upper respiratory infection (URI) Confirmed Active Social History Social History Type Response Smoking Status Never (less than 100 in lifetime) entered on: 05/21/22 Sex Sex Representation Female (finding) Patient Care team information Care Team Personnel Name: Braulio Win MD Position: S Physician - Primary Care Member Role: PCP Address: [address] [place] [address] Adult & Pediatric Medicine [address] Telecom: Care Team Related Persons Name: DAVID HAWK Name: VARSHA LEWIS Name: VARSHA LEWIS Name: VARSHA LEWIS Insurance Providers Guarantor name: KAMAR LEWIS Health Plan Information #: 1 Payer: JOCELYN SAM PPO Member Number: NA Policy Number: NA Group Number: NA
--- OUTSIDE RECORDS SUMMARY | 2024-06-23 19:13 | XMS_ITS | Continuity of Care Document ---
Author Organization [facility] Address [address] [place] [address]- Care Team Providers Care Dog Behaviorist Name Role Phone Quirino POSADAS, Braulio Odonnell Primary Care Physician [place] [facility] [place] - 05/24/[address] [address]- Attending Physician: Corazon Young Admitting Physician: Corazon [...] Silver rded SARS-CoV-2 (COVID-19) mRNA BNT-162b2 vac 8/20/21 Recorded SARS-CoV-2 (COVID-19) mRNA BNT-162b2 vac 08/03/20 [...] 11 Refills, Maintenance, 02/10/24 9:24:00 AM EDT, [facility] #[id number], Partial fill upon patient request if the [...] Refills, Soft Stop, 12/11/23 10:39:00 AM EDT, [facility] #[id number], Partial fill upon patient request if the [...] 3 Refills, Maintenance, 03/07/23 6:54:00 AM EDT, [facility] 06196, 162, cm, 01/04/23 10:36:00 EDT, Height, 72.2, [...] Refills, Maintenance, 05/20/24 3:48:00 PM EST, Tablet, [email or web address][id number], Partial fill upon patient request if the [...] Team Personnel Name: Braulio Win MD Position: [facility] Physician - Primary Care Member Role: PCP Address: [address] [place] [address] Adult & Pediatric Medicine [address] Telecom: Care Team Related Persons Name: DAVID HAWK Name: VARSHA LEWIS Name: VARSHA LEWIS Name: VARSHA LEWIS Insurance Providers Guarantor name: KAMAR LEWIS Health Plan Information #: 1 Payer: JOCELYN SAM PPO Member Number: NA Policy Number: NA Group Number: [id number]
[2024-06-23 19:23] LABS: Erythrocyte Sedimentation Rate 12 MM/HR (0-20)
[2024-06-24 20:09] LABS: Complement C3 161 mg/dL (83-193)
[2024-06-25 21:28] LABS: Anti DNA DS Antibody <1 IU/mL; SM/Ribonucleoprotein Ab <1.0 NEG AI (<1.0 NEG); Smith Protein <1.0 NEG AI (<1.0 NEG)
[2024-06-26 13:43] LABS: DNAds, Crithidia Antibody Negative (Negative)
[2024-06-26 15:39] LABS: Anti Nuclear Antibody Screen POSITIVE (NEGATIVE)
== END 2024-06-23 14:00 | disposition home or self-care (01) ==
LOC: HO.HKASLDS 13:59
PROVIDERS: PCP Internal Medicine; Visit Provider Internal Medicine Rheumatology
DX: M32.9 Systemic lupus erythematosus, unspecified (principal)
CPT/HCPCS: 36415; 81001; 82565; 82570; 84156; 84443; 84450; 84460; 85025; 85652; 86038; 86039; 86140; 86160; 86225; 86235; 86255

== ENCOUNTER 2024-06-23 13:59 | Outpatient (AMB) | payer BC, SELFPAY ==
--- NOTE | 2024-06-23 14:11 | A.OFFVIS_ITS ---
Vital Signs 06/23/24 14:12 Height 5 ft 3 in Weight 164 lb BMI 29.0 BP 116/70 Blood Pressure Location Rt brachial Position Sitting Pulse 84 Pulse Source Pulse Oximeter Pulse Oximetry (%) 99 Oxygen Delivery Method Room Air Intake Visit Reasons: lupus,joint pain Intake Note: Questions on her Raynauds Allergies Milk Containing Products (Dairy) Allergy (Unknown, Verified 06/23/24 14:14) Vomiting acetaminophen [From Percocet] Allergy (Verified 06/23/24 14:14) Unknown bee pollen Allergy (Verified 06/23/24 14:14) Unknown oxycodone [From Percocet] Allergy (Verified 06/23/24 14:14) Unknown tree nut Allergy (Verified 06/23/24 14:14) Unknown HPI HPI lupus,joint pain: Details: Raynauds is active in hands and feet daily multiple times. She is using gloves constantly and wears thick socks. Increase joint pain, fatigue, oral ulcers, hematuria, hot flashes and migraines. She is having brain fog. She continues to have numbness in her hands. She had an EMG study and reports that she has a pinched nerve in her neck. She has been referred to a cardiopulmonary specialist and has an upcoming appointment. She is dropping things. Denies fevers, dyspnea, pleurisy, rashes, urinary frequency, dysuria. Increase stress at work since 2021, exacerbating raynaud's syndrome [facility] Medical History (Updated 06/23/24 @ 15:08 by Richard Marina MD) Raynaud's disease Right hand pain Neuropathy, upper extremity Hx of systemic lupus erythematosus (SLE) Near syncope SLE (systemic lupus erythematosus) Fibromyalgia Depression Anxiety ADHD Surgical History History of lumpectomy of right breast History of surgery Hx of breast reduction, elective Social History Substance Use Type: Marijuana Review of Systems Const All systems reviewed & are unremarkable except as noted in HPI and below Physical Exam Vital Signs: Last Vital Signs Pulse 84 06/23/24 14:12 BP 116/70 06/23/24 14:12 Pulse Ox 99 06/23/24 14:12 Oxygen Delivery Method Room Air 01/07/25 14:12 BMI result Body Mass Index 29.0 Const Other: General: Comfortable CVS: RRR Respiratory: clear to auscultation bilaterally. Good respiratory effort Skin: No lesions seen or digital ulcerations or discoloration of fingertips MSK: No tenderness of any joints. No synovitis. She is unable to feel my hands when I am palpating her feet due to numbness. Good range of motion of upper extremities and lower extremities. Assessment & Plan Assessment & Plan (1) SLE (systemic lupus erythematosus): Comment: She has history of lupus with many symptoms suggestive of increased activity: Lupus fall, fatigue, polyarthralgias, oral ulcers, Raynaud's phenomenon. I will obtain labs this visit to assess for disease activity. She was on hydroxych loroquine in the past in her 20s and reports that she had ocular toxicity from hydroxychloroquine use in a short period of time. She has not been on any immunosuppressive therapy since. 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 We discussed calcium channel lia use amlodipine. Discussed side effects, benefits and monitoring. Code(s): I73.00 - Raynaud's syndrome without gangrene Category: Medical Plan: Start amlodipine 2.5 mg daily Return to clinic in 1 month Orders: Orders SHANTAL Reflex Titer and Pattern Today M32.9 - Systemic lupus erythematosus, unspecified Anti Extractable Nuclear Ag Today M32.9 - Systemic lupus erythematosus, unspecified Anti DNA DS Antibody Today M32.9 - Systemic lupus erythematosus, unspecified Complement C4 Today M32.9 - Systemic lupus erythematosus, unspecified Alanine Aminotransferase Today M32.9 - Systemic lupus erythematosus, unspecified Aspartate Amino Transferase Today M32.9 - Systemic lupus erythematosus, unspecified TSH reflex Free T4 Today M32.9 - Systemic lupus erythematosus, unspecified Complement C3 Today M32.9 - Systemic lupus erythematosus, unspecified C Reactive Protein Today M32.9 - Systemic lupus erythematosus, unspecified DNA Double Stranded-Crithidia Today M32.9 - Systemic lupus erythematosus, unspecified Erythrocyte Sedimentation Rate Today M32.9 - Systemic lupus erythematosus, unspecified Protein Creatinine Ratio, Ur Today M32.9 - Systemic lupus erythematosus, unspecified UA CC w/rflx Micro + Cult Today M32.9 - Systemic lupus erythematosus, unspecified Complete Blood Count Auto Diff Today M32.9 - Systemic lupus erythematosus, unspecified Creatinine Today M32.9 - Systemic lupus erythematosus, unspecified Medications: New amlodipine 2.5 mg PO DAILY 30 tabs 2RF amlodipine 2.5 mg PO DAILY 30 tabs 1RF Coding Level of Care Code Est Pt Level 4 (99392) Complex EM visit Add On G2211 Diagnoses Systemic lupus erythematosus, unspecified SLE type, unspecified organ involvement status M32.9 Systemic lupus erythematosus type: unspecified Systemic lupus erythematosus organ involvement: unspecified Raynaud's disease I73.00
[2024-06-23 14:12] VITALS: BP 116/70; PULSE 84; O2SAT 99; BMI 29.0
== END 2024-06-23 15:04 | disposition home or self-care (01) ==
PROVIDERS: PCP Internal Medicine; Visit Provider Internal Medicine Rheumatology
DX: M32.9 Systemic lupus erythematosus, unspecified (principal); I73.00 Raynaud's syndrome without gangrene
CPT/HCPCS: 99214

== ENCOUNTER 2024-07-13 15:02 | Outpatient (REF) | payer BC, SELFPAY ==
[2024-07-13 16:27] LABS: Appearance Urine Clear; Color Urine Yellow; Glucose Urine UA Negative (Negative); Leukocyte Esterase Urine Negative (Negative); Nitrite Urine Negative (Negative); PH 5.5 (5.0-9.0); Specific Gravity - Urine >= 1.030 (1.005-1.025); UMIC TRIGGER UA YES; UMIC TRIGGER UACC YES; Urine Blood Trace (Negative); Urine Ketones Trace mg/dL (Negative); Urine Protein Negative (Neg-Trace)
[2024-07-13 16:33] LABS: Bacteria Urine None Seen (None Seen); Hyaline Casts Urine 0-2 /LPF (0-2); RBC Urine 0-2 /HPF (0-2); WBC Urine 0-5 /HPF (0-5)
--- OUTSIDE RECORDS SUMMARY | 2024-07-13 19:17 | XMS_ITS | Data Portability ---
Author Organization [facility] [address] Address [address] [place] [address] Care Team Providers Care Head Waiter Name Role Phone SHANTAL HARRIS Primary Care Provider [phone] Assessment No assessment recorded. Plan of Treatment Reminders Order Date Submit Date Provider Last Modified By Organization Details Last Modified Time Details Appointments None recorded. Lab None recorded. Referral None recorded. Procedures None recorded. Surgeries None recorded. Imaging None recorded. Medication Orders prednisone 20 mg tablet 2021 [id number], [address] [place], [address], 16:54:10 azithromyci n 200 mg/5 mL oral suspension 2021 [facility][id number], [address] [place], [address], 16:54:10 albuterol sulfate HFA 90 mcg/actuati on aerosol inhaler [id number] [address] [place], [address], 16:56:07 Patient TargetsNo targets recorded. Patient Instructions Encounter Date Encounter Id Patient Instructions Last Modified By Organization Details Last Modified Time 06/16/2022 [id number] cough: care instructions [email or web address] Not available 06/16/2022 16:54:08 asthma in adults : care instructions [email or web address] Not available 06/16/2022 16:54:54 bronchitis: care instructions [email or web address] Not available 06/16/2022 16:54:54 Take the medication and use the inhaler as prescribed. See printed instructions. Drink plenty of fluids. Seek Emergency Medical evaluation for any worsening symptoms. Follow-up with your doctor this week. [email or web address] Not available 06/16/2022 16:56:58 Reason for Referral None Reported. Problems Name Problem SNOMED Code Status Onset Date Resolution Date Notes Provider Name and Address Organization Details Recorded Time Lupus erythematosus 925184843 Active 2021 YANIV DRINKWINE null, [place] - [facility] 2 16:30:11 Attention deficit hyperactivity disorder 027789017 Active 2021 YANIV DRINKWINE null, [place] - [...] Name and Address Organization Details Recorded Time 97490 acetamino phen / oxycodone medicatio n hives palpitati ons Not available Not available Not available 06/16/2022 62037 3 RxNorm YANIV DRINKWINE null, [place] - [facility] 16:28:04 76778 bee pollen environme nt,medica tion Not available Not available Not available 06/16/2022 04952 7 RxNorm YANIV DRINKWINE null, [place] - [facility] 16:28:17 39427 nut - unspecifi ed food Not available Not available Not available 06/16/2022 29580 UNK YANIV DRINKWINE null, [place] - [facility] 16:28:24 40932 cow milk allergeni c extract food,medi cation Not available Not available Not available 06/16/2022 03182 5 RxNorm YANIV DRINKWINE robert, [place] - [facility] 16:28:29 Medications Name Sig Start Date Stop [...] Not Available Vitals Date Recorded Body weight Provider Name an d Address Organization Details Last Updated DateTime 06/16/2022 66290.55 g YANIV DRINKWINE [place] - [facility] 06/16/2022 16:34:47 Date Recorded Body mass index (BMI) Body height Provider Name and Address Organization Details Last Updated DateTime 06/16/2022 33.7 kg/m2 160.02 cm YANIV DRINKWINE [place] - [facility] 06/16/2022 16:34:53 Date Recorded Pain severity - 0-10 verbal numeric rating [Score] - Reported Provider Name and Address Organization Details Last Updated DateTime 06/16/2022 0 YANIV DRINKWINE [place] - [facility] 06/16/2022 16:34:56 Date Recorded Body temperature Provider Name a nd Address Organization Details Last Updated DateTime 06/16/2022 97.2 [degF] YANIV DRINKWINE [place] - [facility] 06/16/2022 16:36:09 Date Recorded Respiratory rate Provider Name a nd Address Organization Details Last Updated DateTime 06/16/2022 18 /min YANIV DRINKWINE [place] - [facility] 06/16/2022 16:36:11 Date Recorded Heart rate Provider Name an d Address Organization Details Last Updated DateTime 06/16/2022 88 /min YANIV AMADOR PA - [facility] 06/16/2022 16:36:23 Date Recorded Oxygen saturation Oxygen saturation in Arterial blood by Pulse oximetry Provider Name and Address Organization Details Last Updated DateTime 06/16/2022 99 % 99 % YANIV AMADOR PA - [facility] 06/16/2022 16:36:26 Date Recorded Systolic blood pressure Diastolic blood pressure Provider Name and Address Organization Details Last Updated DateTime 06/16/2022 122 mm[Hg] 80 mm[Hg] YANIV AMADOR PA - [facility] 06/16/2022 16:37:13 Social History Question Answer Notes LastModified by Organizat ion Details LastModified Time Tobacco Smoking Status Never Smoker YANIV AMADOR robert [place] - [facility] 06/16/2022 16:34:27 What [...] available 06/16 16:32:11 Father Sarcoidosis ldrinkwine Not nestor simmons 06/16/2022 16:32:21 Father Diabetes mellitus ldrinkwine Not [...] SNOMED-CT Code Diagnosis ICD10 Code Diagnosis Note [id number] [address] [facility] [place], [place] [address] 10/18/2019 18:59:31 10/18/2019 19:32:46 [id number] [address] [facility] [place] [address] 04/15/2021 09:48:42 04/15/2021 11:21:20 [id number] [address] [facility] [place] [address] 04/12/2021 08:11:39 04/12/2021 09:01:58 [id number] Katharine Jurado [facility] [address] [facility] [address] [facility] [address] 06/16/2022 14:59:07 06/16/2022 17:01:28 Asthmatic bronchitis [id number] J45.909 Health Concerns Section Related Observation LastModified by Organization Detai ls LastModified Time None Recorded Concern Status LastModified by Organization Details LastModified Time None Recorded Advance Directives Directive None Recorded Payers Encounter Date Sequence Insurance Name Policy Number Policy Adams Covered Member ID Adams Member ID Guarantor Name 10/18/2019 1 [place] [id number] S Jett Wilkerson [id number] Tina Wilkerson 04/12/2021 1 [place] [id number] S Jett Wilkerson [id number] Tina Wilkerson 04/15/2021 1 [place] [id number] S Jett Wilkerson [id number] Tina Wilkerson 06/16/2022 1 [place] [id number] S Jett Wilkerson [id number] Tina Wilkerson Notes Date Note Type [...] diarrhea, body aches. Katharine Jurado MD [address] [facility] [address], [place], [address], [place] - [facility] 06/16/2022 17:18:30 OBGyn Episode No OBEpisode recorded.
== END 2024-07-13 15:03 | disposition home or self-care (01) ==
LOC: HO.HMGCLDS 15:02
PROVIDERS: PCP Internal Medicine; Visit Provider Internal Medicine Rheumatology
DX: N39.0 Urinary tract infection, site not specified (principal)
CPT/HCPCS: 81001; 87086; 87088; 87186

== ENCOUNTER 2025-03-18 08:14 | Outpatient (REF) | payer BC, SELFPAY ==
--- NOTE | ~2025-03-18 | XR_ITS ---
Exam: XR HAND 2 VIEWS BILATERAL, bilateral hand x-rays TECHNIQUE: Four views upper extremity, bilateral hands INDICATION: M79.641 - Pain in right hand COMPARISON: None available. FINDINGS: RIGHT HAND: Bone mineral density is within normal limits. Joint spaces are preserved. No erosions or osteophytes are evident. LEFT HAND: Bone mineral density is within normal limits. Joint spaces are preserved. No erosions or osteophytes are evident. XR/XR Hand Stephan 2V IMPRESSION: Right hand: Unremarkable right hand Left hand: Unremarkable right hand Electronically signed by: Fredy Conrad MD 03/18/2025 10:45 AM EDT
--- NOTE | ~2025-03-18 | XR_ITS ---
Exam: X-ray, bilateral knees.XR KNEE 3 VIEWS BILATERAL TECHNIQUE: Three views lower extremity joint, bilateral knees INDICATION: Bilateral knee pain, hx of beck's cyst COMPARISON: None available. FINDINGS: RIGHT KNEE: Joint spaces are preserved. There is no joint effusion. There are no osteophytes. LEFT KNEE: Joint spaces are preserved. There is no joint effusion. Medial intercondylar tubercle is peaked. XR/XR Knee Stephan 3V IMPRESSION: Right knee: Unremarkable Left knee: There is a minute osteophyte involving the medial intercondylar spine. Electronically signed by: Fredy Conrad MD 03/18/2025 10:46 AM EDT
[2025-03-18 10:17] LABS: MANUAL DIFF FLAG NO
[2025-03-18 10:52] LABS: Hematocrit 39.1 % (37.0-47.0); Hemoglobin 12.9 g/dl (12.0-16.0); Imm Gran Abs Auto 0.02 X10*3/uL (0.00-0.03); Imm Gran Pct Auto 0.3 % (0.0-0.4); Lymphocytes Absolute Auto 1.9 X10*3/uL (1.2-4.9); Mean Corpuscular HGB Conc 33.0 g/dl (31.0-35.0); Mean Corpuscular Hemoglobin 28.9 pg (27.0-33.0); Mean Corpuscular Volume 87.7 fL (80.0-98.0); NRBC Abs Auto 0.000 X10*3/uL (0.0-0.012); NRBC Pct Auto 0.0 /100WBC (0.0-0.2); Platelet Count 280 X10*3/uL (160-400); Red Blood Count 4.46 X10*6/uL (4.20-5.50); White Blood Count 7.3 X10*3/uL (4.8-10.8)
[2025-03-18 11:03] LABS: Appearance Urine Clear; Glucose Urine UA Negative (Negative); PH 6.5 (5.0-9.0); Specific Gravity - Urine 1.025 (1.005-1.025)
--- OUTSIDE RECORDS SUMMARY | 2025-03-18 11:20 | XMS_ITS | Clinical Summary ---
Author Organization [facility] Address [address] [place] [address] Care Team Providers Care Vacuum Cleaner Repair Person Name Role Phone Unavailable Primary Care Provider Unavailabl e Social History Tobacco Use Types Packs/Day Years Used Date Smoking Tobacco: Never Assessed Comments Unknown Sex and Gender Information Value Date Recorded Sex Assigned at Not on file Legal Sex Female 2:40 PM EDT Gender Identity Not on file Sexual Orientation Not on file Plan of Treatment Health Maintenance Due Date Last Done Comments Hepatitis C Virus Screening 1984 HIV Screening 02/13/1997 DTaP/Tdap/Td Vaccines (1 - Tdap) 02/13/2003 Hepatitis B Vaccines (1 of 3 - 19+ 3-dose series) 02/13/2003 COVID-19 Vaccine (2023-2 5 season) 2025 HPV Vaccines (No Doses Required) Completed Pneumococcal Vaccine: Pediat rosales (0-5 Years) and At-Risk Patients (6 to 49 Years) Aged Out No longer eligible b ased on patient's age to complete this topic
--- OUTSIDE RECORDS SUMMARY | 2025-03-18 11:20 | XMS_ITS | Encounter Summary ---
Author Organization [facility] Address [address] [place] [address] Care Team Providers Care Washer Hand Name Role Phone Unavailable Primary Care Provider Unavailabl e Encounter Details Date Type Department Care Team (Late st Contact Info) Description 03/29/2020 Lab Requisition EM Lab DOC: Saad Lujan [address] [place] [phone] Maikel Michelle PA-C [address] [place] [address] Encounter for laboratory testing for COVID-19 virus Social History Tobacco Use Types Packs/Day Years Used Date Smoking Tobacco: Never Assessed Comments Unknown Sex and Gender Information Value Date Recorded Sex Assigned at Not on file Legal Sex Female 2:40 PM EDT Gender Identity Not on file Sexual Orientation Not on file documented as of this encounter Plan of Treatment Not on file documented as of this encounter Procedures Procedure Name Priority Date/Time Associated Diagnosis Comments (REPORT) SARS COV-2 RNA (COVID-19), QUAL Routine 03/29/2020 1:56 PM EDT Encounter for laboratory testing for COVID-19 virus [ICD-10-CM] documented in this encounter Results * SARS CoV-2 RNA (COVID-19), Qual (03/29/2020 1:56 PM EDT) SARS CoV 2 RNA, Qual NOT DETECTED NOT DETECTED 03/30/2020 11:00 AM EDT [facility] Comment: A Not Detected (negative) test result for this test means that SARS-CoV-2 RNA was not present in the specimen above the limit of detection. A negative result does not rule out the possibility of COVID-19 and should not be used as the sole basis for treatment or patient management decisions. If COVID-19 is still suspected, based on exposure history together with other clinical findings, re-testing should be considered in consultation with public health authorities. Laboratory test results should always be considered in the context of clinical observations and epidemiological data in making a final diagnosis and patient management decisions. REFERENCE RANGE: NOT DETECTED This patient specimen was tested using an FDA EUA pooling method. Negative results from pooled testing should not be treated as definitive. If the patient's clinical signs and symptoms are inconsistent with a negative result or results are necessary for patient management, then the patient should be considered for individual testing. Specimens with low viral loads may not be detected in sample pools due to the decreased sensitivity of pooled testing. Please review the Fact Sheets and FDA authorized labeling available for health care providers and patients using the following websites: https://www.SuddenValues.Catalist Homes/home/Covid-19/HCP/QuestLDTP/ fact-sheet https://www.SuddenValues.[employer]/home/Covid-19/Patients/QuestLDTP/ fact-sheet.html This test has been authorized by the FDA under an Emergency Use Authorization (EUA) for use by authorized laboratories. Due to the current public health emergency, [facility] is receiving a high volume of samples from a wide variety of swabs and media for COVID-19 testing. In order to serve patients during this public health crisis, samples from appropriate clinical sources are being tested. Negative test results derived from specimens received in non-commercially manufactured viral collection and transport media, or in media and sample collection kits not yet authorized by FDA for COVID-19 testing should be cautiously evaluated and the patient potentially subjected to extra precautions such as additional clinical monitoring, including collection of an additional specimen. Methodology: Nucleic Acid Amplification Test (NAAT) includes RT-PCR or TMA Additional information about COVID-19 can be found at the [facility] website: www.[employer]ist [employer]/Covid19. Microbiology Nasopharyngeal swab / Unknown 03/29/2020 1:56 PM EDT 03/29/2020 1:56 PM EDT Oscar [facility] - 03/30/2020 11:00 AM EDT Performing Organization Information: Site ID: [id number] Name: [employer] Address: [address] [place] [address],[place] [address] Director: NIMISHA WEINSTEIN MD [facility] at [facility] License number [id number] Maikel Michelle PA-C BODY FLUIDS AND STOOLS OR DERABLES Final Result [facility] documented in this encounter Visit Diagnoses Diagnosis Encounter for laboratory testing for COVID-19 virus documented in this encounter
--- OUTSIDE RECORDS SUMMARY | 2025-03-18 11:20 | XMS_ITS | Encounter Summary ---
Author Organization [facility] Address [address] [place] [address] Care Team Providers Care Tubular Stock Glass Bulb Machine Former Name Role Phone Unavailable Primary Care Provider Unavailabl e Encounter Details Date Type Department Care Team (Late st Contact Info) Description 05/24/2020 Lab Requisition EM Lab DOC: Saad Lujan [address] [place] [phone] Maikel Michelle PA-C [address] [place] [address] Encounter for laboratory testing for COVID-19 virus [...] (REPORT) SARS COV-2 RNA (COVID-19), QUAL Routine 05/24/2020 2:01 PM EST Encounter for laboratory testing for COVID-19 virus [ICD-10-CM] documented in this encounter Results * SARS CoV-2 RNA (COVID-19), Qual (05/24/2020 2:01 PM EST) SARS CoV 2 RNA, Qual NOT DETECTED NOT DETECTED 05/27/2020 8:00 AM EST [facility] Comment: A Not Detected (negative) test result [...] providers and patients using the following websites: https://www.TheCrowd.Fuisz Media/home/Covid-19/HCP/QuestLDTP/ fact-sheet https://www.[employer]/home/Covid-19/Patients/QuestLDTP/ fact-sheet.html This test has been authorized by the FDA under an Emergency Use Authorization (EUA) for use by authorized laboratories. Due to the current public health emergency, [facility] is receiving a high volume of samples [...] about COVID-19 can be found at the [facility] website: www.ClearContext.Fuis[employer] Media/Covid19. Microbiology Nasopharyngeal swab / Unknown 05/24/2020 2:01 PM EST 05/24/2020 2:01 PM EST [facility] - 05/27/2020 8:00 AM EST Performing Organization Information: Site ID: [id number] Name: [facility] Address: [address] [place] [address],[place] [address] Director: NIMISHA WEINSTEIN MD [facility]formed at [facility] License number [id number] us Maikel Michelle PA-C BODY FLUIDS AND STOOLS OR DERABLES Final Result Performing Organization Address City/State/[facility] Co de Phone Number [facility] documented in this encounter Visit Diagnoses Diagnosis Encounter for laboratory testing for COVID-19 virus documented in this encounter
--- OUTSIDE RECORDS SUMMARY | 2025-03-18 11:20 | XMS_ITS | Clinical Summary ---
Author Organization [facility] Address [address] [place] [address] Care Team Providers Care Pack Train Driver Name Role Phone Camden Mercer MD Primary Care Provider Un available Surgical History Surgery Date Site/Laterality Comments OTHER SURGICAL HISTORY 2012 PROCEDURE: AL OPEN TX NASAL FX W/CONCOMITANT OPTX FXD SEPTUM MASS EXCISION 12/02/2017 PROCEDURE: HISTORICAL EXCISION OF MASS; COMMENT: pigmented lesion of the back 12/02/17 COLONOSCOPY 10/31/2021 PROCEDURE: HISTORICAL COLONOSCOPY; COMMENT: negative ESOPHAGOGASTRODUODENOSCOPY 10/31/2021 PROCEDURE: AL EGD TRANSORAL BIOPSY SINGLE/MULTIPLE; COMMENT: normal including biopsy Medical History Medical History Date Comments Fibromyalgia DX:Fibromyalgia; COM[facility]: [facility] ADHD (attention deficit hype ractivity disorder) DX:ADHD (attention deficit hyperactivity disorder) Allergic rhinitis DX:Allergic rh initis Asthma DX:Asthma Lactose intolerance DX:Lactose i ntolerance; COMMENT: since childhood Depression DX:Depression; C OMMENT: prior to first child and second child Other specified personal his tory presenting hazards to health(V15.89) DX:Other specifie d personal history presenting hazards to health(V15.89); COMMENT: h/o pos HPV age 17 Systemic lupus erythematosus (CMS/HCC V24, CMS/[facility] V28) 10/31/2017 DX:Systemic lupus erythemato dipak (HCC) Pulmonary nodules DX:Pulmonary n odules SLE (systemic lupus erythema tosus) (CMS/HCC V24, CMS/HCC V28) 03/06/2021 DX:SLE (systemic lupus eryt hematosus) ([facility]); COMMENT: Per patient; external level glass vial filler Abdominal pain DX:Abdominal jessie n Epigastric pain DX:Epigastric pa in Change in bowel habits DX:Change in bowel habits Blood in stool DX:Blood in stoo l Mucus in stool DX:Mucus in stoo l Rectal bleeding DX:Rectal bleedi ng Change in bowel habit DX:Change in bowel habit Family History Medical History Relation Name Comments Breast cancer Aunt m ?age or if sti ll santa maternal Great Aunts 2 0r3 Other: sarcoidosis Father HTN Other: Cardiomyopathy Maternal Grandfather also aunt and uncle Arthritis Maternal Grandmother rheumat oid Arthritis Mother osteo and rheum atoid, cervical cancer Other cancer Paternal Grandfather diabete s Lung cancer Paternal Grandmother Diabetes Sister 1 Mariah gestational, HT N also gestational Spontaneous Abortions Sister 2 Xena Relation Name Status Comments Aunt m ?age or if still santa Brother 1 Alive Brother 2 Alive Brother 3 Alive Brother 4 Alive Father Alive sarcoidosis Maternal Grandfather Maternal Grandmother Alive Mother Alive Paternal Grandfather Paternal Grandmother Sister 1 Mariah Alive Sister 2 Xena Alive Sister 3 Alive Sister 4 Alive Social History Tobacco Use Types Packs/Day Years Used Date Smoking Tobacco: Never Smokeless Tobacco: Never Alcohol Use Standard Drinks/Week Comments Yes 0 (1 standard drink = 0.6 oz pur e alcohol) Comments Unknown Sex and Gender Information Value Date Recorded Sex Assigned at Not on file Legal Sex Female 5:36 AM EST Gender Identity Not on file Sexual Orientation Not on file Obstetrics History Last Filed Vital Signs Vital Sign Reading Time Taken Comments Blood Pressure 114/74 09/26/2021 9:59 AM EDT Pulse 70 09/26/2021 9:59 AM EDT Temperature - - Respiratory Rate - - Oxygen Saturation - - Inhaled Oxygen Concentration - - Weight 81.1 kg (178 lb 11.2 oz) 09/26/2021 9:59 AM EDT Height 162.6 cm (5' 4 ) 09/26/2021 9:59 AM EDT Body Mass Index 30.67 09/26/2021 9:59 AM EDT Plan of Treatment Health Maintenance Due Date Last Done Comments Pneumococcal Vaccine: Pediatrics (0 to 5 Years) and At-Risk Patients (6 to 49 Years) (2 of 2 - PPSV23, PCV20, or PCV21) 01/29/2017 12/04/2016 HIV Screening 05/20/2022 Hepatitis C Screening 05/20/2022 Social Influencers of Health Screening 05/20/2022 DTaP,Tdap,and Td Vaccines (9 - Td or Tdap) 12/05/2022 12/05/2012, 01/12/2008, 10/07/1997, Additional history exists Breast Cancer Screening 04/04/2023 04/04/2021 Cervical Cancer Screening: Pap Smear 04/21/2024 04/21/2021 Depression Screening 06/17/2024 COVID-19 Vaccine ( season) 2025 02/03/2021, 08/03/2020, 07/13/2020 Influenza Vaccine (#1) 2025 , 05/07/2014, 03/09/2010, Additional history exists Colorectal Cancer Screening: Colonoscopy 10/30/2031 RSV Immunization Adult Patients (1 - 1-dose 75+ series) 02/13/2059 HIB Vaccines Completed 06/07/1987 IPV Vaccines Completed 01/03/1988, 05/18, 1984, Additional history exists MMR Vaccines Completed 01/15/1995, 06/24/1986 Hepatitis B Vaccines Completed 04/10/1996, 11/15/1995, 10/17/1995 HPV Vaccines Completed 12/31/2008, 07/19, 03/04/2008 Hepatitis A Vaccines Aged Out No long er eligible based on patient's age to complete this topic Meningococcal ACWY Vaccine Aged Out N o longer eligible based on patient's age to complete this topic Meningococcal B Vaccine Aged Out No l onger eligible based on patient's age to complete this topic RSV Immunization Patients Under 20 months Aged Out No longer eligible based on patient's age to complete this topic Varicella Vaccines Aged Out No longer eligible based on patient's age to complete this topic Procedures Procedure Name Priority Date/Time Associated Diagnosis Comments PAP SMEAR Routine 04/21/2021 DIAGNOSTIC MAMMOGRAPHY INCLUDING CAD BILATERAL Routine 04/04/2021 3:24 PM EDT Generalized enlarged lymph nodes from Last 3 Months or Most Recently Relevant to Health Maintenance Results * Pap smear (04/21/2021) 04/21/2021 Narrative HISTORICAL TESTING LAB RESULTING AGENCY - 05/09/2021 7:36 AM EST [id number] THINPREP PAP, IMAGED: NEGATIVE FOR SQUAMOUS INTRAEPITHELIAL LESION AND MALIGNANCY . NOTE: THE PAP TEST IS A SCREENING TEST WITH AN INHERENT FALSE NEGATIVE RATE. AUTOMATED PRESCREENING OF ALL LIQUID BASED SPECIMENS IS PERFORMED BY THE THINPREP IMAGING SYSTEM UNLESS OTHERWISE STATED YOHANA BOOGIE(ASCP) (CASE ELECTRONICALLY SIGNED 05 08 2021) RESULT OF APTIMA HIGH RISK HPV ASSAY: HIGH RISK HPV: NEGATIVE (SEROTYPES 16,18,31,33,35,39,45,51,52,56,58,59,66,68) COMPLETED ON 2021-04-26 ADEQUACY: SATISFACTORY ENDOCERVICAL/TRANSFORMATION ZONE COMPONENT PRESENT. SOURCE: THINPREP PAP HPV ANY DX: REFLEX 16 AND 18, CERVICAL, IMAGED CLINICAL INFORMATION: HPV ANY DIAGNOSIS. HORMONES, PAP HX NEG, Z12.4 Rosalba Carpenter [facility] Final Result HISTORICAL TESTING LAB RESULTING AGENCY * DIAGNOSTIC MAMMOGRAPHY INCLUDING CAD BILATERAL (04/04/2021 3:24 PM EDT) Anatomical Region Laterality Modality Mammography 03/06/2021 8:47 AM EDT Narrative 04/04/2021 4:37 PM EDT This is a summary report. The complete report is available in the patient's medical record. If you cannot access the medical record, please contact the sending organization for a detailed fax or copy. Bilateral mammogram. Limited ultrasound of the right and left breast. History: 36 years old female with swelling and tenderness in the left axilla after Pfizer vaccine booster. Full-field digital 2D and tomosynthesis mammograms were obtained. Additional magnification views of the right breast in CC, and straight lateral projections were obtained as well. Reviewed with CAD. Breast tissue is of mixed density. There is a cluster of heterogeneous microcalcifications in the most anterior right breast inferiorly and slightly medially to the nipple. Ultrasound of the right retroareolar breast was performed . No ultrasonographic correlationmwas identified. Microcalcifications are indeterminate and therefore suspicious for malignancy. Biopsy is recommended. Considering its very close location to the nipple, needle localization and excision, would probably be the best option for the patient. Ultrasound of the left axillary tail and axilla revealed predominantly fatty lymph node measuring 2.2 x 0.9 x 1 cm. No cystic or solid masses or acoustic shadowing identified. Conclusions: Indeterminate, suspicious microcalcifications in the anterior right breast. Biopsy is recommended. Morphologically normal enlarged lymph node in the left axilla. Findings were explained to the patient. She would be contacted by donor services coordinator for arrangements for the needle localization of the microcalcifications in the right breast. BI-RADS 4, suspicious abnormality. Procedure Note Kylah Cadet MD - 06/05/2022 This is a summary report. The complete report is available in thepatient's medical record. If you cannot access the medical record, pleasecontact the sending organization for a detailed fax or copy. Bilateral mammogram. Limited ultrasound of the right and left breast. History: 36 years old female with swelling and tenderness in the leftaxilla after Pfizer vaccine booster. Full-field digital 2D and tomosynthesis mammograms were obtained.Additional magnification views of the right breast in CC, and straightlateral projections were obtained as well. Reviewed with CAD. Breast tissue is of mixed density. There is a cluster of heterogeneousmicrocalcifications in the most anterior right breast inferiorly andslightly medially to the nipple. Ultrasound of the right retroareolarbreast was performed . No ultrasonographic correlationmwas identified.Microcalcifications are indeterminate and therefore suspicious formalignancy. Biopsy is recommended. Considering its very close locationto the nipple, needle localization and excision, would probably be thebest option for the patient. Ultrasound of the left axillary tail and axilla revealed predominantlyfatty lymph node measuring 2.2 x 0.9 x 1 cm. No cystic or solid masses oracoustic shadowing identified. Conclusions: Indeterminate, suspicious microcalcifications in the anteriorright breast. Biopsy is recommended. Morphologically normal enlargedlymph node in the left axilla. Findings were explained to the patient.She would be contacted by donor services coordinator for arrangements for theneedle localization of the microcalcifications in the right breast. BI-RADS 4, suspicious abnormality. us Anette Dalton [employer] [facility] BI PROCEDURES Final Result from Last 3 Months or Most Recently Relevant to Health Maintenance Care Teams Pack Train Driver Relationship Specialty Start Date End Date Camden Mercer MD PCP - General Internal Medicine 11/06/17
--- OUTSIDE RECORDS SUMMARY | 2025-03-18 11:20 | XMS_ITS | Encounter Summary ---
Author Organization [facility] [employer] Address [address] [place] [address] Care Team Providers Care Community Health Planning Director Name Role Phone Unavailable Primary Care Provider Unavailabl e Encounter Details Date Type Department Care Team ([facility] Contact Info) Description 01/03/2023 Scanned Document [facility] Rheumatology [address] [address] Surjit Galvin, DO PhD [address] [place] [address] Social History Tobacco Use Types Packs/Day Years Used Date Smoking Tobacco: Never Assessed Comments Unknown Sex and Gender Information Value Date Recorded Sex Assigned at Female 01/09/2023 4:13 PM EDT Legal Sex Female 2:02 PM EDT Gender Identity Female 01/09/2023 4:13 PM EDT Sexual Orientation Straight 01/09/2023 4: 13 PM EDT documented as of this encounter Plan of Treatment Not on file documented as of this encounter Visit Diagnoses Not on filedocumented in this encounter
--- OUTSIDE RECORDS SUMMARY | 2025-03-18 11:20 | XMS_ITS | Encounter Summary ---
Author Organization [employer] Address [address] [place] [address] Care Team Providers Care Janitorial Maintenance Worker Name Role Phone Unavailable Primary Care Provider Unavailabl e Encounter Details Date Type Department Care Team ([facility] Contact Info) Description 01/02/2023 Scanned Document [facility] Rheumatology [address] [address] Surjit Galvin, DO PhD [address] [place] [address] Social History Tobacco Use Types Packs/Day Years [...]
--- OUTSIDE RECORDS SUMMARY | 2025-03-18 11:20 | XMS_ITS | Clinical Summary ---
Author Organization [employer] Address [address] [place] [address] Care Team Providers Care Senior Software Analyst Name Role Phone Unavailable Primary Care Provider Unavailabl e Social History Tobacco Use Types Packs/Day Years Used Date Smoking Tobacco: Never Assessed Comments Unknown Sex and Gender Information Value Date Recorded Sex Assigned at Female 01/09/2023 4:13 PM EDT Legal Sex Female 2:02 PM EDT Gender Identity Female 01/09/2023 4:13 PM EDT Sexual Orientation Straight 01/09/2023 4: 13 PM EDT Plan of Treatment Health Maintenance Due Date Last Done Comments Mammogram 1984 Annual Physical Exam 02/13/2002 Tdap and Td Vaccines Adult 02/13/2003 Pap Smear 02/13/2005 Cervical Cancer Screening 02/13/2014 HPV/Cotest 02/13/2014 COVID-19 Vaccine (2023-2 5 season) 2025 Influenza Vaccine (#1) 2025 HIB Vaccines Aged Out No longer eligi ble based on patient's age to complete this topic HPV Vaccines (No Doses Required) Completed Hepatitis A Vaccines Aged Out No long er eligible based on patient's age to complete this topic IPV Vaccines Aged Out No longer eligi ble based on patient's age to complete this topic Meningococcal Vaccine Aged Out No michele camilo eligible based on patient's age to complete this topic Pneumococcal Vaccine: Peds ( 0 to 5 Yrs) and At-Risk Pts (6 to 49 Yrs) Aged Out No lo nger eligible based on patient's age to complete this topic RSV <20 Months Aged Out No longer jayden gible based on patient's age to complete this topic
--- OUTSIDE RECORDS SUMMARY | 2025-03-18 11:20 | XMS_ITS | Encounter Summary ---
Author Organization [facility] Address [address] [place] [address] Care Team Providers Care Technical Communicator Name Role Phone Unavailable Primary Care Provider Unavailabl e Encounter Details Date Type Department Care Team (Late st Contact Info) Description 01/26/2020 Lab Requisition EM Lab DOC: Saad Lujan [address] [place] [phone] Maikel Michelle PA-C [address] [place] [address] Encounter for laboratory testing for COVID-19 virus [...] (REPORT) SARS COV-2 RNA (COVID-19), QUAL Routine 01/26/2020 2:42 PM EDT Encounter for laboratory testing for COVID-19 virus [ICD-10-CM] documented in this encounter Results * SARS CoV-2 RNA (COVID-19), Qual (01/26/2020 2:42 PM EDT) SARS CoV 2 RNA, Qual NOT DETECTED NOT DETECTED 01/27/2020 3:00 PM EDT [facility] Comment: A Not Detected (negative) test result [...] providers and patients using the following websites: https://www.[employer].RTB-Media/home/Covid-19/HCP/QuestLDTP/ fact-sheet https://www.[employer].RTB-Media/home/Covid-19/Patients/QuestLDTP/ fact-sheet.html This test has been authorized by the FDA under an Emergency Use Authorization (EUA) for use by authorized laboratories. Due to the current public health emergency, [facility] is receiving a high volume of samples [...] Methodology: Nucleic Acid Amplification Test (NAAT) includes PCR or TMA Additional information about COVID-19 can be found at the [employer] website: www.[employer].RTB-Media/Covid19. Microbiology Nasopharyngeal swab / Unknown 01/26/2020 2:42 PM EDT 01/26/2020 2:42 PM EDT Narrative [facility] - 01/27/2020 3:00 PM EDT Performing Organization Information: Site ID: [id number] Name: [employer] Address: [address] [place] [address],[place] [address] Director: NIMISHA WEINSTEIN MD Performed at [facility] License number [id number] Maikel Michelle PA-C BODY FLUIDS AND STOOLS OR DERABLES Final Result [facility] documented in this encounter Visit Diagnoses Diagnosis Encounter for laboratory testing for COVID-19 virus documented in this encounter
--- OUTSIDE RECORDS SUMMARY | 2025-03-18 11:20 | XMS_ITS | Clinical Summary ---
Author Organization [facility] Address [address] [place] [address] Care Team Providers Care Porcelain Enamel Installer Name Role Phone Unavailable Primary Care Provider Unavailabl e Social History Tobacco Use Types Packs/Day Years Used Date Smoking Tobacco: Never Assessed Sex and Gender Information Value Date Recorded Sex Assigned at Female 06/16/2020 9:13 AM EST Gender Identity Not on file Sexual Orientation Not on file Plan of Treatment Not on file
--- OUTSIDE RECORDS SUMMARY | 2025-03-18 11:20 | XMS_ITS | Encounter Summary ---
Author Organization [facility] Address [address] [place] [address] Care Team Providers Care [employer] Dean Name Role Phone Unavailable Primary Care Provider Unavailabl e Encounter Details Date Type Department Care Team (Late st Contact Info) Description 04/26/2020 Lab Requisition EM Lab DOC: Saad Lujan [address] [place] [phone] Maikel Michelle PA-C [address] [place] [phone] Encounter for laboratory testing for COVID-19 virus [...] (REPORT) SARS COV-2 RNA (COVID-19), QUAL Routine 04/26/2020 1:55 PM EST Encounter for laboratory testing for COVID-19 virus [ICD-10-CM] documented in this encounter Results * SARS CoV-2 RNA (COVID-19), Qual (04/26/2020 1:55 PM EST) Pathologist [facility] SARS CoV 2 RNA, Qual NOT DETECTED NOT DETECTED 04/28/2020 4:00 PM EST [facility] Comment: A Not Detected (negative) [...] providers and patients using the following websites: https://www.[employer].Tykli/home/Covid-19/HCP/QuestLDTP/ fact-sheet https://www.[employer]/home/Covid-19/Patients/QuestLDTP/ fact-sheet.html This test has been authorized by the FDA under an Emergency Use Authorization (EUA) for use by authorized laboratories. Due to the current public health emergency, [facility] is receiving a high volume of samples [...] about COVID-19 can be found at the [employer] website: www.Interlude.Tykli/Covid19. Microbiology Nasopharyngeal swab / Unknown 04/26/2020 1:55 PM EST 04/26/2020 1:55 PM EST [facility] - 04/28/2020 4:00 PM EST Performing Organization Information: Site ID: [id number] Name: [facility] Address: [address] [place] [address],[place] [address] Director: NIMISHA WEINSTEIN MD [facility] License number [id number] us Maikel Michelle PA-C BODY FLUIDS AND STOOLS OR DERABLES Final Result Performing Organization Address City/State/[facility] Co de Phone Number [facility] documented in this encounter Visit Diagnoses Diagnosis Encounter for laboratory testing for COVID-19 virus documented in this encounter
--- OUTSIDE RECORDS SUMMARY | 2025-03-18 11:20 | XMS_ITS | Encounter Summary ---
Author Organization [facility] Address [address] [place] [address] Care Team Providers Care [employer] Name Role Phone Unavailable Primary Care Provider Unavailabl e Encounter Details Date Type Department Care Team (Late st Contact Info) Description 02/16/2020 Lab Requisition EM Lab DOC: Saad Lujan [address] [place] [phone] Maikel Michelle PA-C [address] [place] [phone] Encounter for laboratory testing for COVID-19 virus [...] (REPORT) SARS COV-2 RNA (COVID-19), QUAL Routine 02/16/2020 1:44 PM EDT Encounter for laboratory testing for COVID-19 virus [ICD-10-CM] documented in this encounter Results * SARS CoV-2 RNA (COVID-19), Qual (02/16/2020 1:44 PM EDT) SARS CoV 2 RNA, Qual NOT DETECTED NOT DETECTED 02/17/2020 5:00 PM EDT [facility] Comment: A Not Detected (negative) test result for this test means that SARS- CoV-2 RNA was not present in the specimen [...] a final diagnosis and patient management decisions. Please review the Fact Sheets and FDA authorized labeling available for health care providers and patients using the following websites: https://www.Klout.[employer]/home/Covid-19/HCP/NAAT/fact-sheet2 https://www.[employer]/home/Covid-19/Patients/NAAT/ fact-sheet2 This test has been authorized by the FDA under an Emergency Use Authorization (EUA) for use by authorized laboratories. Due to the current public health emergency, [employer] is receiving a high volume of samples [...] about COVID-19 can be found at the [employer] website: www.Camerborn/Covid19. Microbiology Nasopharyngeal swab / Unknown 02/16/2020 1:44 PM EDT 02/16/2020 1:44 PM EDT [facility]ative [facility] 02/17/2020 5:00 PM EDT Performing Organization Information: Site ID: [id number] Name: [facility] Address: [address] [place] [address],[place] [address] Director: NIMISHA WEINSTEIN MD [facility] License number [id number] Maikel Michelle PA-C BODY FLUIDS AND STOOLS OR DERABLES Final Result [facility] documented in this encounter Visit Diagnoses Diagnosis Encounter for laboratory testing for COVID-19 virus documented in this encounter
[2025-03-18 11:30] LABS: Alanine Aminotransferase 16 U/L (0-31); Aspartate Amino Transferase 18 U/L (5-31); Estimated Glomerular Filt Rate > 60
[2025-03-18 11:42] LABS: Protein/Creatinine Ratio, Ur 0.05 (<0.2); Total Protein Urine Random 15 mg/dL (<12)
== END 2025-03-18 08:15 | disposition home or self-care (01) ==
LOC: HO.LAB 08:14
PROVIDERS: PCP Internal Medicine; Visit Provider Internal Medicine Rheumatology
DX: S76.319A Strain of muscle, fascia and tendon of the posterior muscle group at thigh level, unspecified thigh, initial encounter (principal); M32.9 Systemic lupus erythematosus, unspecified; I73.00 Raynaud's syndrome without gangrene; G89.29 Other chronic pain; M79.641 Pain in right hand; M79.642 Pain in left hand; X58.XXXA Exposure to other specified factors, initial encounter
CPT/HCPCS: 36415; 73120; 73562; 81001; 82565; 82570; 84156; 84450; 84460; 85025; 85652; 86140; 86160; 86225

== ENCOUNTER 2025-03-18 08:14 | Outpatient (AMB) | payer BC, SELFPAY ==
[2025-03-18 08:27] VITALS: BP 140/80; PULSE 102; O2SAT 95; BMI 30.1
--- NOTE | 2025-03-18 08:27 | A.OFFVIS_ITS ---
Vital Signs 03/18/25 08:27 Height 5 ft 3 in Weight 169 lb 12.095 oz BMI 30.1 BP 140/80 H Blood Pressure Location Lt brachial Position Sitting Pulse 102 H Pulse Source Pulse Oximeter Pulse Oximetry (%) 95 Oxygen Delivery Method Room Air Intake Visit Reasons: follow up Intake Note: Patient presents for Raynaud's follow up.Patient states that she has been having pain in bilateral legs for a lengthy amount of time and pain in hands that started this week. Accompanied by: Self / Same As Patient Allergies Milk Containing Products (Dairy) Allergy (Unknown, Verified 06/23/24 14:14) Vomiting acetaminophen (From Percocet) Allergy (Verified 06/23/24 14:14) Unknown bee pollen Allergy (Verified 06/23/24 14:14) Unknown oxycodone (From Percocet) Allergy (Verified 06/23/24 14:14) Unknown tree nut Allergy (Verified 06/23/24 14:14) Unknown Medication List - Last Reconciled 03/18/25 by Richard Marina MD amlodipine 2.5 mg PO DAILY ciprofloxacin HCl 250 mg PO Q12H 3 days dextroamphetamine-amphetamine 20 mg (Adderall) 20 mg PO DAILY multivitamin with minerals 10 mL PO DAILY naproxen 500 mg PO BID omega 5-lvr-pta-fish oil 1,600-500-800 mg/5 mL (Fish Oil) 5 mL PO DAILY tramadol 50 mg PO BID PRN HPI HPI follow up: Details: She has tachycardia 140-160s. Testing has shown a leaky valve . She is being worked up for ligament tear in knees by PCP with MRIs ordered in January. Dr. Win retired last month. She has not had MRIs. She has not completed PT. her main pain is behind the knee. She is experiencing this pain since December. She is struggling to walk at work short distances. She limps when she gets up. She has been bracing which helps. She went [facility] for neck pain evaluation. She had an MRI of C-spine a year ago. During her evaluation they wanted to repeat an MRI prior to cortisone injection. There was an issue with obtaining the repeat MRI. Yesterday she has pain in left wrist. SHe has required intermittent leave from work due to her medical conditions. Psychiatry is working on her getting a period of time off from work. Work is very stressful for her. Brain fog has progressed. She feels weekly fevers but has not checked. Oral and nasal ulcer early Sept. +dyspnea. No pleurisy. Raynaud's is active. Denies urinary symptoms. [facility] Medical History (Updated 03/18/25 @ 13:43 by Richard Marina MD) Raynaud's disease Right hand pain Neuropathy, upper extremity Hx of systemic lupus erythematosus (SLE) Near syncope SLE (systemic lupus erythematosus) Fibromyalgia Depression Anxiety ADHD Surgical History History of lumpectomy of right breast History of surgery Hx of breast reduction, elective Social History Substance Use Type: Marijuana Physical Exam Vital Signs: Last Vital Signs Pulse 102 H 03/18/25 08:27 BP 140/80 H 03/18/25 08:27 Pulse Ox 95 03/18/25 08:27 Oxygen Delivery Method Room Air 03/18/25 08:27 BMI result Body Mass Index 30.1 Const Other: General: Comfortable CVS: RRR Respiratory: clear to auscultation bilaterally. Good respiratory effort Skin: No lesions seen or digital ulcerations or discoloration of fingertips MSK: Left wrist is tender with mild synovitis. Good range of motion of upper extremities and lower extremities. She has tenderness of bilateral hamstrings with swelling of right medial and left lateral. No knee effusion. No Franco's cyst. Assessment & Plan Assessment & Plan (1) SLE (systemic lupus erythematosus): Comment: She reports subjective fevers, joint pain, worsening brain fog and active Raynaud's. On exam she does have mild synovitis of her left wrist. I will be further working up with x-rays to evaluate for arthritis. We reviewed labs from June 2024, which did not reveal serological activity from SLE. We discussed her clinical workup under my care since [facility]. During my evaluations, on repeat testing for SLE her workup has been unremarkable suggesting that lupus is dormant. She is under a lot of personal stress with her job and family situation, that may be contributing to her joint pain and brain fog. I encouraged her to continue to work with her psychiatrist to reduce her stress. We discussed next steps in treatment of Raynaud's phenomenon with initiating calcium channel lia amlodipine. Discussed side effects and benefits. Rheumatology history: She was diagnosed with lupus by manager field at [facility] many years ago. Repeat testing on multiple occasions has not revealed serological activity from lupus. She was on hydroxychloroquine in the past in her 20s and reports that she had ocular toxicity from hydroxychloroquine use in a short period of time. She has not been on any immunosuppressive therapy since. Code(s): M32.9 - Systemic lupus erythematosus, unspecified Category: Medical Qualifiers: Systemic lupus erythematosus organ involvement: unspecified Systemic lupus erythematosus type: unspecified Qualified Code(s): M32.9 - Systemic lupus erythematosus, unspecified Plan: Labs ordered for disease activity Requesting records from [facility] where she was 1st diagnosed with SLE. She will request records from her past microbiology director who did a workup for lupus Start measuring temperature with a thermometer when you feel like you have a fever and log it for next visit Start amlodipine 2.5 mg daily for Raynaud's syndrome Return to clinic in 1 month for nurse visit for blood pressure check in to obtain an update if amlodipine is helping her Raynaud's syndrome (reducing frequency of episodes) We discussed importance of reducing her personal stressors, which may be contributing to some of her symptoms. She will continue to work with her psychiatrist. I am in support of her leave from work to her manage her medical conditions Follow up with PCP for further workup of tachycardia. I asked her to communicate with her PCP's practice to see if she has been assigned another provider since her PCP has recently retired. She may need cardiology evaluation Return to clinic in 3 months (2) Hamstring strain: Comment: Bilateral Code(s): S76.319A - Strain of muscle, fascia and tendon of the posterior muscle group at thigh level, unspecified thigh, initial encounter Category: Medical Plan: PT ordered for strengthening. Patient prefers to do PT local to her home. Requisition given to patient Return to clinic in 3-4 months (3) Knee pain, bilateral: Comment: Chronic Code(s): M25.561 - Pain in right knee; M25.562 - Pain in left knee Category: Medical Qualifiers: Chronicity: chronic Qualified Code(s): M25.561 - Pain in right knee; M25.562 - Pain in left knee; G89.29 - Other chronic pain Plan: X-rays of bilateral knees ordered for evaluation of arthritis PT ordered for strengthening Continue bracing knee (4) Raynaud's disease: Comment: Uncontrolled on conservative management. We discussed calcium channel lia use amlodipine. Discussed side effects, benefits and monitoring. Code(s): I73.00 - Raynaud's syndrome without gangrene Category: Medical Qualifiers: Raynaud?s-associated gangrene presence: without gangrene Qualified Code(s): I73.00 - Raynaud's syndrome without gangrene Plan: Start amlodipine 2.5 mg daily Nurse visit in 1 month for blood pressure check and Raynaud's phenomenon update (? Raynaud's phenomenon episodes reduced in frequency with less pain and numbness) Return to clinic in 3 months Orders: Orders Complete Blood Count Auto Diff Today M32.9 - Systemic lupus erythematosus, unspecified Complement C3 Today M32.9 - Systemic lupus erythematosus, unspecified Aspartate Amino Transferase Today M32.9 - Systemic lupus erythematosus, unspecified Anti DNA DS Antibody Today M32.9 - Systemic lupus erythematosus, unspecified C Reactive Protein Today M32.9 - Systemic lupus erythematosus, unspecified XR Knee Stephan 3V Today M25.561 - Pain in right knee, M25.562 - Pain in left knee Erythrocyte Sedimentation Rate Today M32.9 - Systemic lupus erythematosus, unspecified Protein Creatinine Ratio, Ur Today M32.9 - Systemic lupus erythematosus, unspecified Alanine Aminotransferase Today M32.9 - Systemic lupus erythematosus, unspe cified Complement C4 Today M32.9 - Systemic lupus erythematosus, unspecified Creatinine Today M32.9 - Systemic lupus erythematosus, unspecified UA ClnCatch+Micro w/rflx Cult Today M32.9 - Systemic lupus erythematosus, unspecified PT Evaluation and Treatment Today S76.319A - Strain of muscle, fascia and tendon of the posterior muscle group at thigh level, unspecified thigh, initial encounter XR Hand Stephan 2V Today M79.641 - Pain in right hand, M79.642 - Pain in left hand Medications: Refilled amlodipine 2.5 mg PO DAILY 30 tabs 5RF Coding Level of Care Code Est Pt Level 5 (22902) Complex EM visit Add On G2211 Diagnoses Systemic lupus erythematosus, unspecified SLE type, unspecified organ involvement status M32.9 Systemic lupus erythematosus organ involvement: unspecified Systemic lupus erythematosus type: unspecified Hamstring strain S76.319A Chronic pain of both knees M25.561; M25.562; G89.29 Chronicity: chronic Raynaud's disease without gangrene I73.00 Raynaud?s-associated gangrene presence: without gangrene Time Spent (min) 40
== END 2025-03-18 09:30 | disposition home or self-care (01) ==
LOC: HO.RHES 08:14
PROVIDERS: PCP Internal Medicine; Visit Provider Internal Medicine Rheumatology
DX: M32.9 Systemic lupus erythematosus, unspecified (principal); S76.319A Strain of muscle, fascia and tendon of the posterior muscle group at thigh level, unspecified thigh, initial encounter; M25.561 Pain in right knee; M25.562 Pain in left knee; G89.29 Other chronic pain; I73.00 Raynaud's syndrome without gangrene
CPT/HCPCS: 99215

== ENCOUNTER → 2025-03-18 10:22 | Outpatient (BNV) | payer BC, SELFPAY | PROVIDERS: PCP Internal Medicine; Visit Provider Radiology Diagnostic Radiology | DX: M25.762 Osteophyte, left knee (principal); M79.641 Pain in right hand | CPT/HCPCS: 73120; 73562 ==